=== PATIENT | female | born 1960 | race Hispanic/Latino ===

== ENCOUNTER 2017-09-23 14:32 | Emergency (ER) | payer OTHER ==
[2017-09-23 15:02] LABS: BASOPHILS % (AUTO) 0.4 % (0.0-5.0); EOSINOPHILS % (AUTO) 0.1 % (0.0-8.0); HEMATOCRIT 42.6 % (36-48); LYMPHOCYTES % (AUTO) 11.4 % (21.0-51.0); MEAN CORPUSCULAR HEMOGLOBIN 27.9 pg (27.0-33.0); MEAN CORPUSCULAR HGB CONC 33.7 g/dL (32.0-36.0); MEAN CORPUSCULAR VOLUME 82.7 fL (79-99); MONOCYTES % (AUTO) 2.3 % (3.0-13.0); NEUTROPHILS % (AUTO) 85.8 % (40.0-77.0); PLATELET COUNT (AUTO) 325 K/uL (130-400); RED BLOOD CELL COUNT(AUTO) 5.15 MIL/uL (4.00-5.50); RED CELL DISTRIBUTION WIDTH 15.9 % (11.0-15.5); WHITE BLOOD COUNT (AUTO) 9.6 K/uL (4.8-10.8)
[2017-09-23 15:17] LABS: ALBUMIN 3.5 g/dL (3.5-5.0); BILIRUBIN,DIRECT 0.2 mg/dL (0.0-0.3); BILIRUBIN,TOTAL 0.9 mg/dL (0.2-1.0); CREATININE 1.7 mg/dL (0.5-1.5); POTASSIUM 3.5 mmol/L (3.5-5.1); TOTAL PROTEIN, SERUM 8.2 g/dL (6.0-8.3)
[2017-09-23] MEDS ORDERED: SODIUM CHLORIDE 0.9% 1000ML 2,000 ML IV ONE (15:46)
[2017-09-23] MEDS ORDERED: ONDANSETRON HCL 4 MG/2 ML VIAL ONE (15:46)
[2017-09-23] MEDS ORDERED: INSULIN HUMULIN R 100 UNIT/ML 3ML ONE ×2 (15:47→18:38)
[2017-09-23 15:57] LABS: ABG BASE EXCESS 12.2 mmol/L (-2.0-3.0); ABG HCO3 36.3 mmol/L (21.0-28.0); ABG OXYGEN SATURATION 95.9 % (95.0-99.0); ABG PCO2 44 mmHg (32-45)
[2017-09-23] MEDS ORDERED: POTASSIUM CHLORIDE 20 MEQ ERTAB PO ONE (18:36)
== END 2017-09-23 19:39 | disposition home or self-care (01) ==
LOC: EDH 14:32
DX: K52.9 Noninfective gastroenteritis and colitis, unspecified (principal); E11.65 Type 2 diabetes mellitus with hyperglycemia; I10 Essential (primary) hypertension; E78.5 Hyperlipidemia, unspecified; F32.9 Major depressive disorder, single episode, unspecified; Z90.710 Acquired absence of both cervix and uterus; Z98.890 Other specified postprocedural states; Z90.49 Acquired absence of other specified parts of digestive tract
CPT/HCPCS: 36415; 36600; 74176; 80048; 80076; 82550; 82803; 82948 ×3; 83690; 84484; 85025; 93005; 96361; 96374 ×2; 96375; 99285; J1815 ×2; J2405; J7030

== ENCOUNTER 2023-07-30 04:04 | Emergency (ER) | payer BC, OTHER ==
[~2023-07-30] VITALS: Ht 152.4 cm; Wt 92.1 kg
[~2023-07-30 04:04] MED LIST: CITA10TA89 PO; GABA-529 PO; INSLAN SQ; LISI20TA24 PO; OMEP40CA21 PO; ONDA-104 PO; POTA-200 PO; ROSU5TAB12 PO; SEMA0.258 SQ
[2023-07-30 04:42] LABS: BASOPHILS # (AUTO) 0.05 K/uL (0.00-0.20); BASOPHILS % (AUTO) 0.3 % (0.0-5.0); EOSINOPHILS # (AUTO) 0.01 K/uL (0.00-0.70); EOSINOPHILS % (AUTO) 0.1 % (0.0-8.0); HEMATOCRIT 31.9 % (36-48); LYMPHOCYTES # (AUTO) 1.3 K/uL (1.0-4.8); LYMPHOCYTES % (AUTO) 6.4 % (21.0-51.0); MEAN CORPUSCULAR HEMOGLOBIN 27.7 pg (27.0-33.0); MEAN CORPUSCULAR HGB CONC 33.2 g/dL (32.0-36.0); MEAN CORPUSCULAR VOLUME 83.5 fL (79-99); MONOCYTES # (AUTO) 0.8 K/uL (0.1-1.0); MONOCYTES % (AUTO) 4.2 % (3.0-13.0); NEUTROPHILS # (AUTO) 17.3 K/uL (1.8-7.7); NEUTROPHILS % (AUTO) 88.5 % (40.0-77.0); PLATELET COUNT (AUTO) 258 K/uL (130-400); RED BLOOD CELL COUNT(AUTO) 3.82 MIL/uL (4.00-5.50); WHITE BLOOD COUNT (AUTO) 19.5 K/uL (4.8-10.8)
[2023-07-30 05:08] LABS: MAGNESIUM 1.4 mg/dL (1.80-2.40); THYROID STIMULATING HORMONE 0.75 uIU/mL (0.36-3.74)
[2023-07-30 05:25] LABS: CREATININE 1.1 mg/dL (0.5-1.0); POTASSIUM 3.4 mmol/L (3.5-5.1)
[2023-07-30 05:30] LABS: ALBUMIN 2.8 g/dL (3.5-5.0); BILIRUBIN,TOTAL 0.6 mg/dL (0.2-1.0); TOTAL PROTEIN, SERUM 7.9 g/dL (6.0-8.3)
[2023-07-30 06:00] LABS: APPEARANCE,URINE CLOUDY (CLEAR); BILIRUBIN,URINE NEGATIVE (NEGATIVE); COLOR,URINE YELLOW (YELLOW); GLUCOSE, URINE (UA) >=1000 mg/dL (NEGATIVE); KETONES,URINE NEGATIVE (NEGATIVE); LEUKOCYTE ESTERASE ,URINE 500 Leu/uL (NEGATIVE); NITRATE,URINE NEGATIVE (NEGATIVE); OCCULT BLOOD,URINE SMALL (NEGATIVE); PROTEIN,URINE 50 mg/dL (NEGATIVE); UROBILINOGEN,URINE 0.2 mg/dL (0.2-1.0)
[2023-07-30 06:01] LABS: ADD UA MICROSCOPIC YES
[2023-07-30 06:07] LABS: BACTERIA,URINE MANY /HPF (None Seen); MUCUS,URINE RARE LPF (None Seen); RBC,URINE 51-100 /HPF (0-1); SQUAMOUS EPITHELIAL CELL,UR MANY /HPF (0-2); UNCLASSIFIED CRYSTAL 14 /HPF (None Seen); WBC CLUMP FEW /HPF (0-1); WBC,URINE TNTC /HPF (0-1); YEAST,URINE BUDDING MOD /HPF (None Seen)
[2023-07-30] MEDS: CEFTRIAXONE 2GM VIAL IVPB ONE (06:10)
[2023-07-30] MEDS ORDERED: CEPH500T PO (06:16)
[2023-07-30 06:19] VITALS: BP 152/69; PULSE 96; RESP 17; O2SAT 97
[2023-07-30 07:07] LABS: B-TYPE NATRIURETIC PEPTIDE 481 pg/mL (0-100)
== END 2023-07-30 07:01 | disposition home or self-care (01) ==
LOC: EDH 04:04
DX: N39.0 Urinary tract infection, site not specified (principal); I10 Essential (primary) hypertension; E11.9 Type 2 diabetes mellitus without complications; E78.00 Pure hypercholesterolemia, unspecified; F32.A Depression, unspecified; Z79.899 Other long term (current) drug therapy; Z87.19 Personal history of other diseases of the digestive system; Z90.49 Acquired absence of other specified parts of digestive tract; Z90.710 Acquired absence of both cervix and uterus; Z90.89 Acquired absence of other organs; Z98.890 Other specified postprocedural states
CPT/HCPCS: 99285; 96374; 71045; 84443; 82550; 83735; 84484 ×2; 80053; 83880; 85025; 87077 ×2; 87088; 87186 ×2; 82948; 81001; 36415; 93005; J0696

== ENCOUNTER 2023-10-22 00:16 | Inpatient (IN) | payer BC, MEDICARE ==
[~2023-10-22] VITALS: Ht 165.1 cm; Wt 95.7 kg
[~2023-10-22 00:16] MED LIST changes: -POTA-200 PO; -ROSU5TAB12 PO; +ROSU5TAB43 PO
[2023-10-22 00:50] LABS: ADD UA MICROSCOPIC YES; APPEARANCE,URINE CLOUDY (CLEAR); BILIRUBIN,URINE NEGATIVE (NEGATIVE); COLOR,URINE LIGHT-YELLOW (YELLOW); GLUCOSE, URINE (UA) NEGATIVE (NEGATIVE); KETONES,URINE NEGATIVE (NEGATIVE); LEUKOCYTE ESTERASE ,URINE 500 Leu/uL (NEGATIVE); NITRATE,URINE NEGATIVE (NEGATIVE); OCCULT BLOOD,URINE SMALL (NEGATIVE); PH,URINE 5.5 (5.0-8.0); PROTEIN,URINE 10 mg/dL (NEGATIVE); UROBILINOGEN,URINE 0.2 mg/dL (0.2-1.0)
[2023-10-22 00:53] LABS: BACTERIA,URINE MOD /HPF (None Seen); MUCUS,URINE RARE LPF (None Seen); SQUAMOUS EPITHELIAL CELL,UR FEW /HPF (0-2); WBC CLUMP MANY /HPF (0-1); WBC,URINE TNTC /HPF (0-1)
[2023-10-22 00:54] LABS: BASOPHILS # (AUTO) 0.04 K/uL (0.00-0.20); BASOPHILS % (AUTO) 0.3 % (0.0-5.0); EOSINOPHILS # (AUTO) 0.13 K/uL (0.00-0.70); HEMATOCRIT 24.8 % (36-48); IMMATURE GRANULOCYTE ABSOLUTE 0.06 K/uL (0-1); LYMPHOCYTES # (AUTO) 1.4 K/uL (1.0-4.8); LYMPHOCYTES % (AUTO) 10.7 % (21.0-51.0); MEAN CORPUSCULAR HEMOGLOBIN 26.2 pg (27.0-33.0); MEAN CORPUSCULAR HGB CONC 31.9 g/dL (32.0-36.0); MEAN CORPUSCULAR VOLUME 82.4 fL (79-99); MONOCYTES # (AUTO) 0.5 K/uL (0.1-1.0); MONOCYTES % (AUTO) 3.7 % (3.0-13.0); NEUTROPHILS # (AUTO) 10.7 K/uL (1.8-7.7); NEUTROPHILS % (AUTO) 83.8 % (40.0-77.0); PLATELET COUNT (AUTO) 307 K/uL (130-400); RED BLOOD CELL COUNT(AUTO) 3.01 MIL/uL (4.00-5.50); RED CELL DISTRIBUTION WIDTH 14.7 % (11.0-15.5); WHITE BLOOD COUNT (AUTO) 12.8 K/uL (4.8-10.8)
[2023-10-22 01:02] LABS: CREATININE 1.2 mg/dL (0.5-1.0); POTASSIUM 3.6 mmol/L (3.5-5.1)
[2023-10-22 01:07] LABS: ALBUMIN 1.8 g/dL (3.5-5.0); BILIRUBIN,TOTAL 0.4 mg/dL (0.2-1.0); MAGNESIUM 1.1 mg/dL (1.80-2.40); TOTAL PROTEIN, SERUM 6.2 g/dL (6.0-8.3)
[2023-10-22] MEDS ORDERED: IOHEXOL 350 MG/ML 100ML INFUS..BTL IV ONE (01:17)
[2023-10-22] MEDS: DEXTROSE 50%-WATER 50 ML DISP.SYRIN IV ONE (01:48)
[2023-10-22] MEDS: MAGNESIUM 2GM PREMIX 50ML 50 ML IV SCH (01:48)
[2023-10-22] MEDS: CEFTRIAXONE 1G VIAL IVPB ONE (01:49)
[2023-10-22] MEDS: 0.9% NACL 500ML IV.SOLN 500 ML IV ONE (03:39)
[2023-10-22] MEDS ORDERED: ONDANSETRON ODT 4MG TAB SL PRN (06:00)
[2023-10-22] MEDS ORDERED: ACETAMINOPHEN 325 MG TAB PO PRN (06:00)
[2023-10-22] MEDS: ZOSYN 3.375GM +NS 50ML IV SCH (06:22)
[2023-10-22] MEDS: INSULIN HUMULIN R 100 UNIT/ML 3ML SQ SCH (06:32)
[2023-10-22 06:40] VITALS: BP 123/58; PULSE 73; RESP 19; O2SAT 98
[2023-10-22 07:23] LABS: BASOPHILS # (AUTO) 0.04 K/uL (0.00-0.20); BASOPHILS % (AUTO) 0.3 % (0.0-5.0); EOSINOPHILS # (AUTO) 0.08 K/uL (0.00-0.70); EOSINOPHILS % (AUTO) 0.6 % (0.0-8.0); HEMATOCRIT 23.2 % (36-48); IMMATURE GRANULOCYTE ABSOLUTE 0.06 K/uL (0-1); LYMPHOCYTES # (AUTO) 1.1 K/uL (1.0-4.8); LYMPHOCYTES % (AUTO) 8.5 % (21.0-51.0); MEAN CORPUSCULAR HEMOGLOBIN 26.4 pg (27.0-33.0); MEAN CORPUSCULAR HGB CONC 31.9 g/dL (32.0-36.0); MEAN CORPUSCULAR VOLUME 82.9 fL (79-99); MONOCYTES # (AUTO) 0.6 K/uL (0.1-1.0); MONOCYTES % (AUTO) 4.9 % (3.0-13.0); NEUTROPHILS # (AUTO) 10.5 K/uL (1.8-7.7); NEUTROPHILS % (AUTO) 85.2 % (40.0-77.0); PLATELET COUNT (AUTO) 343 K/uL (130-400); RED CELL DISTRIBUTION WIDTH 14.6 % (11.0-15.5); WHITE BLOOD COUNT (AUTO) 12.4 K/uL (4.8-10.8)
[2023-10-22 07:32] LABS: HEMOGLOBIN A1C 10.9 % (4.0-6.0)
[2023-10-22 07:35] LABS: ALBUMIN 1.8 g/dL (3.5-5.0); CREATININE 1.4 mg/dL (0.5-1.0); POTASSIUM 3.1 mmol/L (3.5-5.1)
[2023-10-22 07:40] LABS: BILIRUBIN,TOTAL 0.3 mg/dL (0.2-1.0); MAGNESIUM 1.7 mg/dL (1.80-2.40); TOTAL PROTEIN, SERUM 6.4 g/dL (6.0-8.3)
[2023-10-22 08:00] VITALS: BP 132/60; PULSE 70; RESP 16; O2SAT 99
[2023-10-22] MEDS: ENOXAPARIN SODIUM 30 MG/0.3 ML SQ SCH (09:00)
[2023-10-22 11:47] VITALS: BP 129/51; PULSE 68; RESP 18
[2023-10-22] MEDS: KCL 20 MEQ ERTAB PO PRN (13:26)
[2023-10-22 16:00] VITALS: BP 155/71; PULSE 72; RESP 14
[2023-10-22 20:00] VITALS: BP 151/65; PULSE 76; RESP 18
[2023-10-22 20:05] VITALS: O2SAT 99
[2023-10-23] VITALS (7 sets, daily range): BP systolic 142–165; BP diastolic 58–78; PULSE 68–79; RESP 17–18; O2SAT 97–98
[2023-10-23 05:31] LABS: MEAN CORPUSCULAR HEMOGLOBIN 26.6 pg (27.0-33.0); MEAN CORPUSCULAR HGB CONC 30.9 g/dL (32.0-36.0); MEAN CORPUSCULAR VOLUME 86.1 fL (79-99); PLATELET COUNT (AUTO) 340 K/uL (130-400); RED BLOOD CELL COUNT(AUTO) 2.67 MIL/uL (4.00-5.50); RED CELL DISTRIBUTION WIDTH 14.8 % (11.0-15.5); WHITE BLOOD COUNT (AUTO) 11.1 K/uL (4.8-10.8)
[2023-10-23 06:04] LABS: CREATININE 1.4 mg/dL (0.5-1.0); MAGNESIUM 2.2 mg/dL (1.80-2.40); POTASSIUM 4.1 mmol/L (3.5-5.1)
[2023-10-24] VITALS (8 sets, daily range): BP systolic 149–174; BP diastolic 51–78; PULSE 70–80; RESP 17–18; O2SAT 96–97
[2023-10-24 05:25] LABS: HEMATOCRIT 27.5 % (36-48); MEAN CORPUSCULAR HEMOGLOBIN 26.4 pg (27.0-33.0); MEAN CORPUSCULAR HGB CONC 31.6 g/dL (32.0-36.0); MEAN CORPUSCULAR VOLUME 83.3 fL (79-99); RED BLOOD CELL COUNT(AUTO) 3.3 MIL/uL (4.00-5.50); RED CELL DISTRIBUTION WIDTH 14.9 % (11.0-15.5); WHITE BLOOD COUNT (AUTO) 9.3 K/uL (4.8-10.8)
[2023-10-24 05:35] LABS: CREATININE 1.5 mg/dL (0.5-1.0)
[2023-10-24] MEDS: LISINOPRIL 20 MG TABLET PO ONE (11:54)
[2023-10-24] MEDS: AMLODIPINE 5 MG TAB PO ONE (11:54)
[2023-10-24] MEDS: FUROSEMIDE 20 MG TABLET PO ONE (11:57)
[2023-10-24] MEDS ORDERED: LISI20TA24 PO (13:02)
[2023-10-24] MEDS ORDERED: AMOX1TAB16 PO (13:02)
[2023-10-24] MEDS ORDERED: OMEP40CA21 PO (13:02)
[2023-10-24] MEDS ORDERED: ROSU5TAB43 PO (13:02)
[2023-10-24] MEDS ORDERED: MELO-108 PO (13:02)
[2023-10-24] MEDS ORDERED: AMLO-257 PO (13:02)
[2023-10-24] MEDS ORDERED: SERT-439 PO (13:02)
[2023-10-24] MEDS ORDERED: GABA-534 PO (13:02)
[2023-10-24] MEDS ORDERED: CITA-107 PO (13:02)
[2023-10-25] VITALS (7 sets, daily range): BP systolic 150–164; BP diastolic 72–79; PULSE 66–74; RESP 17–18; O2SAT 96
[2023-10-25 03:55] LABS: HEMATOCRIT 28.5 % (36-48); MEAN CORPUSCULAR HEMOGLOBIN 26.5 pg (27.0-33.0); MEAN CORPUSCULAR HGB CONC 31.9 g/dL (32.0-36.0); MEAN CORPUSCULAR VOLUME 82.8 fL (79-99); RED BLOOD CELL COUNT(AUTO) 3.44 MIL/uL (4.00-5.50); RED CELL DISTRIBUTION WIDTH 15.1 % (11.0-15.5); WHITE BLOOD COUNT (AUTO) 10.3 K/uL (4.8-10.8)
[2023-10-25 04:21] LABS: CREATININE 1.1 mg/dL (0.5-1.0); MAGNESIUM 1.8 mg/dL (1.80-2.40); POTASSIUM 4.3 mmol/L (3.5-5.1)
[2023-10-25] MEDS: MELOXICAM 7.5 MG TABLET PO SCH (09:00)
[2023-10-25] MEDS: PANTOPRAZOLE 40 MG TAB DR PO SCH (09:00)
[2023-10-25] MEDS: CITALOPRAM 20 MG TABLET PO SCH (09:00)
[2023-10-25] MEDS: GABAPENTIN 300 MG CAPSULE PO SCH (09:00)
[2023-10-25] MEDS: SERTRALINE HCL 50 MG TABLET PO SCH (09:00)
[2023-10-25] MEDS ORDERED: FUROSEMIDE 20 MG TABLET PO SCH (09:00)
[2023-10-25] MEDS: AMLODIPINE 5 MG TAB PO SCH (09:00)
[2023-10-25] MEDS: LISINOPRIL 20 MG TABLET PO SCH (09:00)
[2023-10-25] MEDS: REGADENOSON 0.4 MG/5 ML PF SYG IVP SCH (14:19)
[2023-10-26] VITALS (7 sets, daily range): BP systolic 128–162; BP diastolic 64–78; PULSE 58–80; RESP 16–20; O2SAT 98–99
[2023-10-26 05:22] LABS: HEMATOCRIT 29.2 % (36-48); MEAN CORPUSCULAR HEMOGLOBIN 26.4 pg (27.0-33.0); MEAN CORPUSCULAR HGB CONC 30.1 g/dL (32.0-36.0); MEAN CORPUSCULAR VOLUME 87.7 fL (79-99); RED BLOOD CELL COUNT(AUTO) 3.33 MIL/uL (4.00-5.50); RED CELL DISTRIBUTION WIDTH 15.2 % (11.0-15.5); WHITE BLOOD COUNT (AUTO) 7.3 K/uL (4.8-10.8)
[2023-10-26 05:37] LABS: CREATININE 1.2 mg/dL (0.5-1.0); MAGNESIUM 2.1 mg/dL (1.80-2.40); POTASSIUM 3.5 mmol/L (3.5-5.1)
[2023-10-27] VITALS (7 sets, daily range): BP systolic 141–153; BP diastolic 60–71; PULSE 56–66; RESP 18; O2SAT 99–100
[2023-10-28] VITALS (9 sets, daily range): BP systolic 102–146; BP diastolic 47–88; PULSE 61–91; RESP 17–19; O2SAT 96–98
[2023-10-28 05:22] LABS: HEMATOCRIT 29.8 % (36-48); MEAN CORPUSCULAR HEMOGLOBIN 26.7 pg (27.0-33.0); MEAN CORPUSCULAR HGB CONC 31.2 g/dL (32.0-36.0); MEAN CORPUSCULAR VOLUME 85.6 fL (79-99); RED BLOOD CELL COUNT(AUTO) 3.48 MIL/uL (4.00-5.50); RED CELL DISTRIBUTION WIDTH 15.1 % (11.0-15.5); WHITE BLOOD COUNT (AUTO) 5.9 K/uL (4.8-10.8)
[2023-10-28 05:34] LABS: CREATININE 1.4 mg/dL (0.5-1.0); MAGNESIUM 1.7 mg/dL (1.80-2.40); POTASSIUM 3.6 mmol/L (3.5-5.1)
[2023-10-28 05:38] LABS: INR 1.01 (0.85-1.15); PROTHROMBIN TIME 10.9 SEC (9.6-11.6)
[2023-10-28 05:39] LABS: PARTIAL THROMBOPLASTIN TIME 25.6 SEC (26.3-35.5)
[2023-10-28] MEDS: POTASSIUM CHLORIDE 10% ELIXIR 20 MEQ/15 ML UDCUP PO PRN (15:08)
[2023-10-28] MEDS: ZOSYN 3.375GM +NS 50ML IV SCH (17:53)
[2023-10-29] VITALS (8 sets, daily range): BP systolic 131–163; BP diastolic 55–77; PULSE 60–71; RESP 16–18; O2SAT 98–99
[2023-10-29] MEDS: HYDRALAZINE 20MG/ML VIAL IV PRN (18:37)
[2023-10-30] VITALS (7 sets, daily range): BP systolic 139–154; BP diastolic 62–78; PULSE 65–70; RESP 16–17; O2SAT 96–98
[2023-10-30 05:26] LABS: HEMATOCRIT 29.7 % (36-48); MEAN CORPUSCULAR HEMOGLOBIN 27.1 pg (27.0-33.0); MEAN CORPUSCULAR VOLUME 87.4 fL (79-99); RED BLOOD CELL COUNT(AUTO) 3.4 MIL/uL (4.00-5.50); RED CELL DISTRIBUTION WIDTH 15.6 % (11.0-15.5); WHITE BLOOD COUNT (AUTO) 6.9 K/uL (4.8-10.8)
[2023-10-30 05:33] LABS: CREATININE 1.8 mg/dL (0.5-1.0); MAGNESIUM 1.8 mg/dL (1.80-2.40)
[2023-10-31] VITALS (8 sets, daily range): BP systolic 144–164; BP diastolic 65–84; PULSE 65–74; RESP 17–19; O2SAT 95–98
[2023-10-31 07:13] LABS: HEMATOCRIT 30.2 % (36-48); MEAN CORPUSCULAR HEMOGLOBIN 26.6 pg (27.0-33.0); MEAN CORPUSCULAR HGB CONC 31.5 g/dL (32.0-36.0); MEAN CORPUSCULAR VOLUME 84.6 fL (79-99); RED BLOOD CELL COUNT(AUTO) 3.57 MIL/uL (4.00-5.50); RED CELL DISTRIBUTION WIDTH 15.9 % (11.0-15.5); WHITE BLOOD COUNT (AUTO) 6.4 K/uL (4.8-10.8)
[2023-10-31 07:25] LABS: CREATININE 1.8 mg/dL (0.5-1.0); POTASSIUM 4.2 mmol/L (3.5-5.1)
[2023-10-31] MEDS: INSULIN HUMULIN R 100 UNIT/ML 3ML SQ SCH (12:28)
[2023-10-31] MEDS: LACTATED RINGERS 1000ML 1,000 ML IV SCH (14:56)
[2023-10-31] MEDS: PEG 3350/NA SULF,BICARB,CL/KCL 4000 ML SOLN PO ONE (14:56)
[2023-11-01] VITALS (8 sets, daily range): BP systolic 128–170; BP diastolic 50–81; PULSE 59–74; RESP 16–18; O2SAT 98–99
[2023-11-01 05:35] LABS: BASOPHILS # (AUTO) 0.05 K/uL (0.00-0.20); BASOPHILS % (AUTO) 0.6 % (0.0-5.0); EOSINOPHILS # (AUTO) 0.16 K/uL (0.00-0.70); EOSINOPHILS % (AUTO) 1.9 % (0.0-8.0); HEMATOCRIT 31.5 % (36-48); IMMATURE GRANULOCYTE ABSOLUTE 0.02 K/uL (0-1); LYMPHOCYTES # (AUTO) 1.3 K/uL (1.0-4.8); LYMPHOCYTES % (AUTO) 15.8 % (21.0-51.0); MEAN CORPUSCULAR HGB CONC 31.4 g/dL (32.0-36.0); MEAN CORPUSCULAR VOLUME 85.8 fL (79-99); MONOCYTES # (AUTO) 0.4 K/uL (0.1-1.0); MONOCYTES % (AUTO) 4.2 % (3.0-13.0); NEUTROPHILS # (AUTO) 6.4 K/uL (1.8-7.7); NEUTROPHILS % (AUTO) 77.3 % (40.0-77.0); PLATELET COUNT (AUTO) 282 K/uL (130-400); RED BLOOD CELL COUNT(AUTO) 3.67 MIL/uL (4.00-5.50); RED CELL DISTRIBUTION WIDTH 15.7 % (11.0-15.5); WHITE BLOOD COUNT (AUTO) 8.3 K/uL (4.8-10.8)
[2023-11-01 05:55] LABS: ALBUMIN 2.6 g/dL (3.5-5.0); BILIRUBIN,TOTAL 0.4 mg/dL (0.2-1.0); CREATININE 1.3 mg/dL (0.5-1.0); POTASSIUM 3.3 mmol/L (3.5-5.1); TOTAL PROTEIN, SERUM 7.1 g/dL (6.0-8.3)
[2023-11-01 06:05] LABS: INR 0.99 (0.85-1.15); PROTHROMBIN TIME 10.7 SEC (9.6-11.6)
[2023-11-01 06:06] LABS: PARTIAL THROMBOPLASTIN TIME 24.6 SEC (26.3-35.5)
[2023-11-01] MEDS: POTASSIUM CHLORIDE 10MEQ SR TAB PO PRN (13:04)
[2023-11-02] VITALS (8 sets, daily range): BP systolic 132–170; BP diastolic 49–71; PULSE 65–84; RESP 16–20; O2SAT 95–98
[2023-11-02] MEDS ORDERED: 0.9%NACL 50ML IV SCH (02:00)
[2023-11-02] MEDS: ZOSYN 3.375GM +NS 50ML IVPB SCH (02:00)
[2023-11-03] VITALS (7 sets, daily range): BP systolic 114–153; BP diastolic 44–67; PULSE 62–76; RESP 18–20; O2SAT 96–97
[2023-11-03 05:59] LABS: HEMATOCRIT 29.5 % (36-48); MEAN CORPUSCULAR HGB CONC 31.5 g/dL (32.0-36.0); MEAN CORPUSCULAR VOLUME 85.8 fL (79-99); RED BLOOD CELL COUNT(AUTO) 3.44 MIL/uL (4.00-5.50); RED CELL DISTRIBUTION WIDTH 16.4 % (11.0-15.5); WHITE BLOOD COUNT (AUTO) 5.8 K/uL (4.8-10.8)
[2023-11-03 06:09] LABS: CREATININE 1.3 mg/dL (0.5-1.0); MAGNESIUM 1.5 mg/dL (1.80-2.40); POTASSIUM 3.5 mmol/L (3.5-5.1)
[2023-11-03] MEDS: MAGNESIUM CITRATE 296 ML SOLUTION PO ONE (17:28)
[2023-11-04] VITALS (25 sets, daily range): BP systolic 97–175; BP diastolic 41–71; PULSE 57–80; RESP 12–20; O2SAT 95–96
[2023-11-04 05:53] LABS: HEMATOCRIT 28.9 % (36-48); MEAN CORPUSCULAR HEMOGLOBIN 27.3 pg (27.0-33.0); MEAN CORPUSCULAR HGB CONC 31.5 g/dL (32.0-36.0); MEAN CORPUSCULAR VOLUME 86.8 fL (79-99); RED BLOOD CELL COUNT(AUTO) 3.33 MIL/uL (4.00-5.50); RED CELL DISTRIBUTION WIDTH 16.1 % (11.0-15.5); WHITE BLOOD COUNT (AUTO) 5.7 K/uL (4.8-10.8)
[2023-11-04 06:07] LABS: CREATININE 1.3 mg/dL (0.5-1.0); MAGNESIUM 2.1 mg/dL (1.80-2.40); POTASSIUM 3.1 mmol/L (3.5-5.1)
[2023-11-04 06:09] LABS: INR 0.99 (0.85-1.15); PROTHROMBIN TIME 10.7 SEC (9.6-11.6)
[2023-11-04 06:11] LABS: PARTIAL THROMBOPLASTIN TIME 24.8 SEC (26.3-35.5)
[2023-11-04] MEDS: POTASSIUM CHLORIDE 10MEQ/100ML 100 ML IV PRN (06:12)
[2023-11-04] MEDS ORDERED: SUCCINYLCHOLINE CHLORIDE 20 MG/ML 10 ML VIAL ONE (09:27)
[2023-11-04] MEDS ORDERED: LIDOCAINE PF 100MG/5ML (2%) SYRINGE 5ML ONE (09:27)
[2023-11-04] MEDS ORDERED: GLYCOPYRROLATE 0.2 MG/ML 5 ML VIAL ONE (09:28)
[2023-11-04] MEDS ORDERED: ROCURONIUM BROMIDE 10MG/1ML 5ML VL ONE ×2 (09:28→15:59)
[2023-11-04] MEDS ORDERED: NEOSTIGMINE METHYLSULFATE 1MG/ML IV ONE (09:28)
[2023-11-04] MEDS ORDERED: MIDAZOLAM HCL 1 MG/ML 2ML VIAL ONE (09:28)
[2023-11-04] MEDS ORDERED: PROPOFOL 10 MG/ML 20ML VIAL IV ONE (09:28)
[2023-11-04] MEDS ORDERED: ONDANSETRON 4MG INJ ONE (09:28)
[2023-11-04] MEDS ORDERED: DEXAMETHASONE SOD PHOSPHATE 10MG/ML 1ML VIAL ONE (09:28)
[2023-11-04] MEDS ORDERED: FENTANYL CITRATE PF 50 MCG/1 ML 2ML VIAL ONE ×2 (09:29→15:59)
[2023-11-04] MEDS ORDERED: PHENYLEPHRINE HCL 10 MG/ML 1ML VIAL IV ONE (09:33)
[2023-11-04] MEDS ORDERED: ALBUMIN (HUMAN) 5% 500 ML IV ONE (09:44)
[2023-11-04] MEDS ORDERED: ROPIVACAINE 0.5% 5MG/ML 30ML ONE (09:46)
[2023-11-04] MEDS ORDERED: LIDOCAINE HCL 1% 20 ML VIAL ONE (11:50)
[2023-11-04] MEDS ORDERED: BUPIVACAINE/PF 0.5% 30ML VIAL ONE (11:50)
[2023-11-04] MEDS ORDERED: CEFAZOLIN SODIUM 1 GM VIAL ONE (11:50)
[2023-11-04] MEDS: CEFAZOLIN SODIUM 1 GM VIAL IRRIG ONE (16:22)
[2023-11-04] MEDS ORDERED: FENTANYL CITRATE PF 50 MCG/1 ML 5ML AMP IV ONE (16:31)
[2023-11-04] MEDS: SUGAMMADEX SODIUM 200 MG/2 ML VIAL IV ONE (17:06)
[2023-11-04] MEDS: 0.9%NACL 1000ML 1,000 ML IV SCH (20:00)
[2023-11-04] MEDS ORDERED: ONDANSETRON 4MG INJ IVP PRN (20:00)
[2023-11-04] MEDS: KETOROLAC 15MG/ML VIAL (15MG/ML) IV SCH (20:33)
[2023-11-05] VITALS (8 sets, daily range): BP systolic 142–162; BP diastolic 50–60; PULSE 69–80; RESP 17–20; O2SAT 94–95
[2023-11-05] MEDS: INSULIN HUMULIN R 100 UNIT/ML 3ML SQ SCH (00:54)
[2023-11-05 04:54] LABS: HEMATOCRIT 28.2 % (36-48); MEAN CORPUSCULAR HEMOGLOBIN 26.5 pg (27.0-33.0); MEAN CORPUSCULAR HGB CONC 30.9 g/dL (32.0-36.0); PLATELET COUNT (AUTO) 236 K/uL (130-400); RED BLOOD CELL COUNT(AUTO) 3.28 MIL/uL (4.00-5.50); RED CELL DISTRIBUTION WIDTH 16.3 % (11.0-15.5); WHITE BLOOD COUNT (AUTO) 15.3 K/uL (4.8-10.8)
[2023-11-05 05:23] LABS: ALBUMIN 2.7 g/dL (3.5-5.0); BILIRUBIN,TOTAL 0.5 mg/dL (0.2-1.0); CREATININE 1.4 mg/dL (0.5-1.0); MAGNESIUM 1.9 mg/dL (1.80-2.40); TOTAL PROTEIN, SERUM 6.6 g/dL (6.0-8.3)
[2023-11-05] MEDS: PANTOPRAZOLE 40 MG/VIAL IVP SCH (11:46)
[2023-11-06] VITALS (7 sets, daily range): BP systolic 155–183; BP diastolic 45–98; PULSE 73–80; RESP 18–19; O2SAT 96–98
[2023-11-06 05:15] LABS: HEMATOCRIT 28.1 % (36-48); MEAN CORPUSCULAR HEMOGLOBIN 26.7 pg (27.0-33.0); MEAN CORPUSCULAR HGB CONC 29.5 g/dL (32.0-36.0); MEAN CORPUSCULAR VOLUME 90.4 fL (79-99); RED BLOOD CELL COUNT(AUTO) 3.11 MIL/uL (4.00-5.50); RED CELL DISTRIBUTION WIDTH 17.1 % (11.0-15.5); WHITE BLOOD COUNT (AUTO) 11.7 K/uL (4.8-10.8)
[2023-11-06 05:39] LABS: CREATININE 1.2 mg/dL (0.5-1.0); MAGNESIUM 2.3 mg/dL (1.80-2.40); POTASSIUM 3.2 mmol/L (3.5-5.1)
[2023-11-06] MEDS: POTASSIUM CHLORIDE 20MEQ/100ML 100 ML IV PRN (18:30)
[2023-11-06] MEDS: ZOSYN 3.375GM +NS 50ML IVPB SCH (22:09)
[2023-11-07] VITALS (7 sets, daily range): BP systolic 145–209; BP diastolic 63–88; PULSE 70–86; RESP 18–19; O2SAT 98
[2023-11-07] MEDS: HYDROMORPHONE 1 MG INJ IVP PRN (01:18)
[2023-11-07 06:03] LABS: HEMATOCRIT 25.9 % (36-48); MEAN CORPUSCULAR HGB CONC 31.3 g/dL (32.0-36.0); MEAN CORPUSCULAR VOLUME 86.3 fL (79-99); RED CELL DISTRIBUTION WIDTH 16.7 % (11.0-15.5); WHITE BLOOD COUNT (AUTO) 11.3 K/uL (4.8-10.8)
[2023-11-07 06:21] LABS: MAGNESIUM 1.7 mg/dL (1.80-2.40)
[2023-11-07 06:24] LABS: POTASSIUM 2.9 mmol/L (3.5-5.1)
[2023-11-07 11:23] LABS: CHOLESTEROL 173 mg/dL (<200); HDL CHOLESTEROL 63 mg/dL (35-85); LDL DIRECT 95 mg/dL (0-99); TRIGLYCERIDES 133 mg/dL (30-200)
[2023-11-08] VITALS: BP 123/73; PULSE 89; RESP 18
[2023-11-08 04:04] VITALS: BP 132/85; PULSE 89; RESP 19
[2023-11-08 05:32] LABS: HEMATOCRIT 30.4 % (36-48); MEAN CORPUSCULAR HEMOGLOBIN 27.2 pg (27.0-33.0); MEAN CORPUSCULAR HGB CONC 30.6 g/dL (32.0-36.0); MEAN CORPUSCULAR VOLUME 88.9 fL (79-99); RED BLOOD CELL COUNT(AUTO) 3.42 MIL/uL (4.00-5.50); RED CELL DISTRIBUTION WIDTH 17.2 % (11.0-15.5); WHITE BLOOD COUNT (AUTO) 11.6 K/uL (4.8-10.8)
[2023-11-08 05:51] LABS: MAGNESIUM 1.6 mg/dL (1.80-2.40); POTASSIUM 3.1 mmol/L (3.5-5.1)
[2023-11-08 08:00] VITALS: BP 181/73; PULSE 84; RESP 18; O2SAT 98
[2023-11-08 12:00] VITALS: BP 177/78; PULSE 84; RESP 18
[2023-11-08 16:00] VITALS: BP 175/70; PULSE 80; RESP 18
[2023-11-08 20:00] VITALS: BP 140/88; PULSE 83; RESP 20; O2SAT 97
[2023-11-08] MEDS ORDERED: POTASSIUM CHLORIDE 10MEQ/100ML 100 ML IV PRN (23:00)
[2023-11-09] VITALS (58 sets, daily range): BP systolic 132–198; BP diastolic 51–101; PULSE 68–220; RESP 5–30; O2SAT 97–100
[2023-11-09 01:09] LABS: HEMATOCRIT 28.3 % (36-48); MEAN CORPUSCULAR HEMOGLOBIN 27.5 pg (27.0-33.0); MEAN CORPUSCULAR HGB CONC 32.5 g/dL (32.0-36.0); MEAN CORPUSCULAR VOLUME 84.7 fL (79-99); RED BLOOD CELL COUNT(AUTO) 3.34 MIL/uL (4.00-5.50); RED CELL DISTRIBUTION WIDTH 16.9 % (11.0-15.5); WHITE BLOOD COUNT (AUTO) 13.8 K/uL (4.8-10.8)
[2023-11-09 01:19] LABS: POTASSIUM 3.2 mmol/L (3.5-5.1)
[2023-11-09 01:25] LABS: ALBUMIN 2.7 g/dL (3.5-5.0); BILIRUBIN,TOTAL 1.1 mg/dL (0.2-1.0); MAGNESIUM 1.1 mg/dL (1.80-2.40); PHOSPHORUS 1.5 mg/dL (2.5-4.9); TOTAL PROTEIN, SERUM 7.5 g/dL (6.0-8.3)
[2023-11-09] MEDS: LORAZEPAM 2 MG/ML 1 ML VIAL ONE (01:36)
[2023-11-09 02:17] LABS: ABG BASE EXCESS -1.4 mmol/L (-2.0-3.0); ABG HCO3 22.4 mmol/L (21.0-28.0); ABG OXYGEN SATURATION 98.7 % (95.0-99.0); ABG PCO2 34 mmHg (32-45); ABG PH 7.438 (7.35-7.450); CARBON MONOXIDE 0.2; DEVICE COMMENT N.C 2 RR; HHb 1.3; PO2, ARTERIAL BG 129.4 mmHg (83.0-108.0); VENT MODE, BG FNP (ROOM AIR)
[2023-11-09] MEDS: LEVETIRACETAM 500 MG/5 ML SD VIAL IV SCH ×2 (02:23→02:30)
[2023-11-09] MEDS: 0.9%NACL 1000ML 1,000 ML IV SCH (02:30)
[2023-11-09] MEDS ORDERED: POTASSIUM CHLORIDE 20MEQ/100ML 100 ML IV ONE (03:30)
[2023-11-09] MEDS: POTASSIUM CHLORIDE 20MEQ/100ML 100 ML IV ONE (05:18)
[2023-11-09 06:14] LABS: INR 0.98 (0.85-1.15); PROTHROMBIN TIME 10.6 SEC (9.6-11.6)
[2023-11-09 06:15] LABS: PARTIAL THROMBOPLASTIN TIME 28.3 SEC (26.3-35.5)
[2023-11-09] MEDS: KCL 20 MEQ ERTAB PO SCH (08:14)
[2023-11-09] MEDS: LEVETIRACETAM 1,000 MG in 0.9%NACL 100ML 100 ML IV SCH (09:43)
[2023-11-09] MEDS: POTASSIUM PHOS 15 mMOL+NS250ML 250 ML IV PRN (10:10)
[2023-11-09] MEDS ORDERED: IOHEXOL 350 MG/ML 100ML INFUS..BTL IV ONE (11:08)
[2023-11-09] MEDS ORDERED: POTASSIUM PHOS 15 mMOL+NS250ML 250 ML IV PRN (13:00)
[2023-11-09 13:20] LABS: MAGNESIUM 2.4 mg/dL (1.80-2.40)
[2023-11-09 13:22] LABS: POTASSIUM 2.9 mmol/L (3.5-5.1)
[2023-11-09] MEDS: POTASSIUM CHLORIDE 10% ELIXIR 20 MEQ/15 ML UDCUP PO PRN (14:13)
[2023-11-09] MEDS: POTASSIUM CHLORIDE 20MEQ/100ML 100 ML IV PRN (14:32)
[2023-11-09] MEDS: 0.9%NACL 10ML VIAL IV SCH (20:29)
[2023-11-09] MEDS ORDERED: VANCOMYCIN PROTOCOL PER PHARMACY IV SCH (23:00)
[2023-11-09] MEDS: MEROPENEM 1 GM in 0.9%NACL 100ML 100 ML IVPB SCH (23:00)
[2023-11-10] VITALS (41 sets, daily range): BP systolic 134–205; BP diastolic 52–157; PULSE 74–94; RESP 8–20; O2SAT 98–100
[2023-11-10 03:55] LABS: ABG OXYGEN SATURATION 78.3 % (95.0-99.0); BASE EXCESS,VENOUS BLOOD GAS -1.3 (-2.0-3.0); HCO3,VENOUS BLOOD GAS 24.1 (21.0-28.0); PCO2,VENOUS BLOOD GAS 43 (32-45); PH,VENOUS BLOOD GAS 7.362 (7.350-7.450); PO2,VENOUS BLOOD GAS 43.2 mmHg (35.0-45.0); VENT MODE, BG NC (ROOM AIR)
[2023-11-10 05:12] LABS: HEMATOCRIT 25.2 % (36-48); MEAN CORPUSCULAR HEMOGLOBIN 27.4 pg (27.0-33.0); MEAN CORPUSCULAR VOLUME 88.4 fL (79-99); RED BLOOD CELL COUNT(AUTO) 2.85 MIL/uL (4.00-5.50); RED CELL DISTRIBUTION WIDTH 17.2 % (11.0-15.5); WHITE BLOOD COUNT (AUTO) 7.8 K/uL (4.8-10.8)
[2023-11-10 05:24] LABS: INR 0.97 (0.85-1.15); PROTHROMBIN TIME 10.5 SEC (9.6-11.6)
[2023-11-10 05:38] LABS: ALANINE AMINOTRANSFERASE 11 U/L (12-78); ASPARTATE AMINOTRANSFERASE 11 U/L (10-37); BILIRUBIN,TOTAL 0.5 mg/dL (0.2-1.0); CARBON DIOXIDE 26 mmol/L (21-32); CHLORIDE 108 mmol/L (101-111); CHOLESTEROL 177 mg/dL (<200); CREATINE KINASE, TOTAL 8 U/L (21-232); CREATININE 1.1 mg/dL (0.5-1.0); GLOMERULAR FILTR. RATE CALC 56 mL/min (>90); GLUCOSE,RANDOM 118 mg/dL (70-105); HDL CHOLESTEROL 45 mg/dL (35-85); LDL DIRECT 109 mg/dL (0-99); POTASSIUM 3.6 mmol/L (3.5-5.1); SODIUM SERUM 144 mmol/L (136-145); TOTAL PROTEIN, SERUM 6.1 g/dL (6.0-8.3); TRIGLYCERIDES 140 mg/dL (30-200); UREA NITROGEN, BLOOD 6 mg/dL (7-18)
[2023-11-10 05:43] LABS: AMMONIA < 10 umol/L (11-32)
[2023-11-10] MEDS ORDERED: VANCOMYCIN 1.5 GM/250 ML BAG 250 ML IV SCH (06:45)
[2023-11-10] MEDS: MAGNESIUM 2GM PREMIX 50ML 50 ML IV PRN (07:23)
[2023-11-10] MEDS: AMLODIPINE 5 MG TAB PO SCH (07:42)
[2023-11-10] MEDS ORDERED: LACTATED RINGERS 1000ML 1,000 ML IV SCH (10:30)
[2023-11-10 10:41] LABS: HEMATOCRIT 26.2 % (36-48)
[2023-11-10 18:46] LABS: HEMATOCRIT 25.2 % (36-48)
[2023-11-10 23:04] LABS: HEMATOCRIT 25.1 % (36-48)
[2023-11-11] VITALS (10 sets, daily range): BP systolic 137–185; BP diastolic 56–93; PULSE 71–112; RESP 18–19; O2SAT 97
[2023-11-11] MEDS: CLONIDINE HCL 0.2 MG TABLET PO ONE (00:50)
[2023-11-11] MEDS: CLONIDINE HCL 0.2 MG TABLET PO STA (00:53)
[2023-11-11] MEDS ORDERED: CLONIDINE HCL 0.1 MG TABLET PO PRN (01:00)
[2023-11-11] MEDS: INSULIN HUMULIN R 100 UNIT/ML 3ML SQ SCH (05:51)
[2023-11-11 06:27] LABS: HEMATOCRIT 23.4 % (36-48)
[2023-11-11 06:43] LABS: MAGNESIUM 1.5 mg/dL (1.80-2.40); POTASSIUM 3.5 mmol/L (3.5-5.1)
[2023-11-11] MEDS ORDERED: COMPOUND IV MISC 1 EACH IVSOLN MISC PRN (10:30)
[2023-11-11 16:59] LABS: HEMATOCRIT 22.7 % (36-48)
[2023-11-11 20:21] LABS: PROTHROMBIN TIME 10.8 SEC (9.6-11.6)
[2023-11-11 20:22] LABS: PARTIAL THROMBOPLASTIN TIME 27.3 SEC (26.3-35.5)
[2023-11-11 23:05] LABS: HEMATOCRIT 24.2 % (36-48)
[2023-11-11] MEDS: LEVETIRACETAM 500 MG TABLET PO ONE (23:51)
[2023-11-11] MEDS: LEVETIRACETAM 500 MG TABLET PO SCH (23:51)
[2023-11-12] VITALS (8 sets, daily range): BP systolic 124–178; BP diastolic 52–76; PULSE 78–88; RESP 14–20; O2SAT 96–99
[2023-11-12] MEDS: KCL 20 MEQ ERTAB PO PRN (05:15)
[2023-11-12 05:25] LABS: HEMATOCRIT 24.7 % (36-48); MEAN CORPUSCULAR HEMOGLOBIN 27.8 pg (27.0-33.0); MEAN CORPUSCULAR HGB CONC 31.6 g/dL (32.0-36.0); MEAN CORPUSCULAR VOLUME 87.9 fL (79-99); RED BLOOD CELL COUNT(AUTO) 2.81 MIL/uL (4.00-5.50); RED CELL DISTRIBUTION WIDTH 17.5 % (11.0-15.5); WHITE BLOOD COUNT (AUTO) 9.6 K/uL (4.8-10.8)
[2023-11-12 05:34] LABS: CREATININE 1.3 mg/dL (0.5-1.0); MAGNESIUM 1.4 mg/dL (1.80-2.40); POTASSIUM 3.6 mmol/L (3.5-5.1)
[2023-11-12 05:35] LABS: INR 0.98 (0.85-1.15); PROTHROMBIN TIME 10.6 SEC (9.6-11.6)
[2023-11-12 05:36] LABS: PARTIAL THROMBOPLASTIN TIME 27.5 SEC (26.3-35.5)
[2023-11-12] MEDS ORDERED: LEVETIRACETAM 1,000 MG in 0.9%NACL 100ML 100 ML IV SCH (11:00)
[2023-11-12] MEDS: LEVETIRACETAM 500 MG TABLET PO SCH (12:14)
[2023-11-13] VITALS (8 sets, daily range): BP systolic 139–165; BP diastolic 61–71; PULSE 83–89; RESP 16–20; O2SAT 97–99
[2023-11-13 04:53] LABS: HEMATOCRIT 23.1 % (36-48); MEAN CORPUSCULAR HEMOGLOBIN 26.9 pg (27.0-33.0); MEAN CORPUSCULAR HGB CONC 31.6 g/dL (32.0-36.0); MEAN CORPUSCULAR VOLUME 85.2 fL (79-99); RED BLOOD CELL COUNT(AUTO) 2.71 MIL/uL (4.00-5.50); RED CELL DISTRIBUTION WIDTH 17.6 % (11.0-15.5); WHITE BLOOD COUNT (AUTO) 6.9 K/uL (4.8-10.8)
[2023-11-13 05:01] LABS: CREATININE 1.3 mg/dL (0.5-1.0); MAGNESIUM 1.5 mg/dL (1.80-2.40); POTASSIUM 3.8 mmol/L (3.5-5.1)
[2023-11-13] MEDS: LEVETIRACETAM 1,000 MG in 0.9%NACL 100ML 100 ML IV SCH (10:01)
[2023-11-14] VITALS (7 sets, daily range): BP systolic 133–161; BP diastolic 55–73; PULSE 82–92; RESP 18–20; O2SAT 98
[2023-11-14 04:50] LABS: MEAN CORPUSCULAR HEMOGLOBIN 27.3 pg (27.0-33.0); MEAN CORPUSCULAR HGB CONC 32.1 g/dL (32.0-36.0); MEAN CORPUSCULAR VOLUME 85.1 fL (79-99); RED BLOOD CELL COUNT(AUTO) 2.82 MIL/uL (4.00-5.50); RED CELL DISTRIBUTION WIDTH 17.9 % (11.0-15.5)
[2023-11-14 05:03] LABS: CREATININE 1.4 mg/dL (0.5-1.0); MAGNESIUM 1.8 mg/dL (1.80-2.40); POTASSIUM 4.5 mmol/L (3.5-5.1)
[2023-11-15] VITALS (7 sets, daily range): BP systolic 125–168; BP diastolic 58–69; PULSE 79–83; RESP 14–20; O2SAT 98–100
[2023-11-15 05:21] LABS: HEMATOCRIT 24.9 % (36-48); MEAN CORPUSCULAR HGB CONC 31.7 g/dL (32.0-36.0); RED BLOOD CELL COUNT(AUTO) 2.93 MIL/uL (4.00-5.50); RED CELL DISTRIBUTION WIDTH 17.4 % (11.0-15.5); WHITE BLOOD COUNT (AUTO) 6.7 K/uL (4.8-10.8)
[2023-11-15 05:34] LABS: CREATININE 1.4 mg/dL (0.5-1.0); MAGNESIUM 1.6 mg/dL (1.80-2.40); POTASSIUM 4.2 mmol/L (3.5-5.1)
[2023-11-16 03:00] VITALS: BP 161/74; PULSE 85; RESP 14
[2023-11-16 07:19] VITALS: BP 128/66; PULSE 81; RESP 17
[2023-11-16 07:33] VITALS: PULSE 78; RESP 20; O2SAT 98
[2023-11-16 08:00] VITALS: O2SAT 99
[2023-11-16 11:05] VITALS: BP 116/61; PULSE 83; RESP 18
[2023-11-16] MEDS ORDERED: POTASSIUM CHLORIDE 10MEQ SR TAB PO PRN (16:00)
== END 2023-11-16 18:20 | DRG 907 ==
LOC: EDH 00:16 → EDHIP 05:35 → 3DH 06:23 → 2BH 11-09 01:40 → 3CH 11-10 18:00
PROVIDERS: ADMIT Internal Medicine Infectious Disease; ATTEND Internal Medicine Infectious Disease
PROC: 30233N1 Transfusion of Nonautologous Red Blood Cells into Peripheral Vein, Percutaneous Approach (ICD-10-PCS; 2023-10-23)
PROC: 4A02XM4 Measurement of Cardiac Total Activity, External Approach (ICD-10-PCS; 2023-10-25)
PROC: 3E073KZ Introduction of Other Diagnostic Substance into Coronary Artery, Percutaneous Approach (ICD-10-PCS; 2023-10-25)
PROC: 0WPF0JZ Removal of Synthetic Substitute from Abdominal Wall, Open Approach (ICD-10-PCS; principal; 2023-11-04 14:36)
PROC: 0DB80ZZ Excision of Small Intestine, Open Approach (ICD-10-PCS; 2023-11-04 14:36)
PROC: 0DBU0ZZ Excision of Omentum, Open Approach (ICD-10-PCS; 2023-11-04 14:36)
PROC: 0DTJ0ZZ Resection of Appendix, Open Approach (ICD-10-PCS; 2023-11-04 14:36)
PROC: 0DNW0ZZ Release Peritoneum, Open Approach (ICD-10-PCS; 2023-11-04 14:36)
PROC: 3E0M05Z Introduction of Adhesion Barrier into Peritoneal Cavity, Open Approach (ICD-10-PCS; 2023-11-04 14:36)
PROC: 02HV33Z Insertion of Infusion Device into Superior Vena Cava, Percutaneous Approach (ICD-10-PCS; 2023-11-09)
PROC: 4A00X4Z Measurement of Central Nervous Electrical Activity, External Approach (ICD-10-PCS; 2023-11-11)
DX: T85.79XA Infection and inflammatory reaction due to other internal prosthetic devices, implants and grafts, initial encounter (principal); A41.9 Sepsis, unspecified organism; G93.41 Metabolic encephalopathy; N17.0 Acute kidney failure with tubular necrosis; K65.1 Peritoneal abscess; K63.2 Fistula of intestine; N10 Acute pyelonephritis; I50.30 Unspecified diastolic (congestive) heart failure; K92.1 Melena; I13.0 Hypertensive heart and chronic kidney disease with heart failure and stage 1 through stage 4 chronic kidney disease, or unspecified chronic kidney disease; K56.7 Ileus, unspecified; Z16.24 Resistance to multiple antibiotics; E87.6 Hypokalemia; D64.9 Anemia, unspecified; B96.1 Klebsiella pneumoniae [K. pneumoniae] as the cause of diseases classified elsewhere; B96.20 Unspecified Escherichia coli [E. coli] as the cause of diseases classified elsewhere; E66.01 Morbid (severe) obesity due to excess calories; K66.0 Peritoneal adhesions (postprocedural) (postinfection); I27.20 Pulmonary hypertension, unspecified; E83.42 Hypomagnesemia; E11.22 Type 2 diabetes mellitus with diabetic chronic kidney disease; E78.00 Pure hypercholesterolemia, unspecified; G31.9 Degenerative disease of nervous system, unspecified; N18.9 Chronic kidney disease, unspecified; R56.9 Unspecified convulsions; Z79.4 Long term (current) use of insulin; Z82.41 Family history of sudden cardiac death; Z82.49 Family history of ischemic heart disease and other diseases of the circulatory system; Z83.3 Family history of diabetes mellitus; Z86.73 Personal history of transient ischemic attack (TIA), and cerebral infarction without residual deficits; Z90.710 Acquired absence of both cervix and uterus; F32.A Depression, unspecified; Y83.8 Other surgical procedures as the cause of abnormal reaction of the patient, or of later complication, without mention of misadventure at the time of the procedure; Y92.89 Other specified places as the place of occurrence of the external cause; Y73.2 Prosthetic and other implants, materials and accessory gastroenterology and urology devices associated with adverse incidents; Z90.49 Acquired absence of other specified parts of digestive tract; Z68.35 Body mass index [BMI] 35.0-35.9, adult
CPT/HCPCS: 36415; 36430; 36600; 70450; 70496; 70498; 70551; 71045; 72125; 74177; 78278; 78452; 80048; 80053; 80061; 81001; 82140; 82270; 82306; 82435; 82550; 82607; 82803; 82947; 82948; 83036; 83605; 83735; 84100; 84132; 84145; 84146; 84295; 84425; 84484; 85014; 85018; 85025; 85027; 85610; 85730; 86850; 86900; 86901; 86923; 87040; 87070; 87076; 87086; 87186; 88302; 88305; 88307; 92522; 92610; 93005; 93017; 93306; 93880; 95819; 96365; 96374; 96375; A4344; A6248; A9500; A9512; C1894; G0378; J0330; J0360; J0690; J0696; J1100; J1170; J1650; J1815; J1885; J1953; J2001; J2060; J2185; J2250; J2371; J2405; J2470; J2543; J2704; J2710; J2785; J2795; J3010; J3475; J3480; J3490; J7040; J7070; P9016; P9045; Q9967; A4216; A4222; A4223; A4452; A4600; A4649; A4930; J0665; J3370

== ENCOUNTER 2024-05-13 10:09 | Inpatient (IN) | payer BC, OTHER ==
[~2024-05-13] VITALS: Ht 152.4 cm; Wt 98.4 kg
[~2024-05-13 10:09] MED LIST changes: +AMLO-257 PO; -CITA10TA89 PO; +CITA20TA17 PO; -INSLAN SQ; +INSU100I94 SQ; +MELO-108 PO; -ONDA-104 PO; -ROSU5TAB43 PO; +ROSU5TAB51 PO; -SEMA0.258 SQ; +SERT-439 PO
--- NOTE | 2024-05-13 10:22 | ERN ---
ED Note History of Present Illness Stated Complaint: SOB THIS AM Chief Complaint: Shortness of Breath Time Seen by MD: 10:13 Dictation: 63-YEAR-OLD FEMALE COMING IN IN TODAY VIA EMS WITH TWO COMPLAINTS 1ST COMPLAINT IS SHE WAS IN THE SHOWER THIS MORNING SHE NOTICED HER RIGHT BREAST WAS RED AND SWOLLEN ALSO, SHE HAS BEEN SHORT OF BREATH FOR SEVERAL DAYS. NO FEVER NO CHILLS NO NAUSEA VOMITING Allergies: Coded Allergies: No Known Drug Allergies (Unverified Allergy, Unknown, 05/31/22) Home Meds Reported Medications Insulin Glargine-Yfgn (Insulin Glargine-Yfgn) 100 Unit/Ml (3 Ml) Insuln.pen, 30 UNITS SQ DAILY 02/25/24 Amlodipine Besylate (Amlodipine Besylate) 5 Mg Tablet, 1 TAB PO DAILY for 30 Days, #30 TAB 0 Refills 02/18/24 Rosuvastatin Calcium (Rosuvastatin Calcium) 5 Mg Tablet, 1 TAB PO DAILY for high cholesterol for 30 Days, #30 TAB 0 Refills 02/18/24 Meloxicam (Meloxicam) 15 Mg Tablet, 1 TAB PO DAILY for 30 Days, #30 TAB 0 Refills 02/18/24 Gabapentin (Gabapentin) 100 Mg Capsule, 300 MG PO TID, CAP 02/18/24 Sertraline HCl (Sertraline HCl) 50 Mg Tablet, 1 TAB PO HS for 30 Days, #30 TAB 0 Refills 02/18/24 Omeprazole (Omeprazole) 40 Mg Capsule.dr, 1 CAP PO DAILY for 30 Days, #30 CAP 0 Refills 02/18/24 Citalopram Hydrobromide (Celexa) 20 Mg Tablet, 1 TAB PO DAILY for 30 Days, #30 TAB 0 Refills 02/18/24 Lisinopril (Lisinopril) 20 Mg Tablet, 1 TAB PO DAILY for 30 Days, #30 TAB 0 Refills 02/18/24 Past Medical History Past Medical History: Diabetes-Type II, High Cholesterol, Hypertension, Other Additional Past Medical Hx: GLAUCOMA Surgical History: Appendectomy, Hysterectomy, Cholecystectomy, Other Surgical History Other: CATARAC Family History: Negative Social History: Negative, Lives with family History: Not Applicable RN Note Reviewed/Agreed w/PFSH: Yes Review of System Dictation CONSTITUTIONAL: NEGATIVE EXCEPT FOR HPI HEAD/FACE: NEGATIVE EXCEPT FOR HPI EENT: NEGATIVE EXCEPT FOR HPI RESPIRATORY: NEGATIVE EXCEPT FOR HPI SOB RIGHT BREAST PAIN SWELLING ERYTHEMA GASTROINTESTINAL/ABDOMINAL: NEGATIVE EXCEPT FOR HPI GENITOURINARY: NEGATIVE EXCEPT FOR HPI MUSCULOSKELETAL: NEGATIVE EXCEPT FOR HPI INTEGUMENTARY: NEGATIVE EXCEPT FOR HPI NEUROLOGICAL/PSYCH: NEGATIVE EXCEPT FOR HPI HEMATOLOGIC/LYMPHATIC: NEGATIVE EXCEPT FOR HPI ALL SYSTEMS NEGATIVE, EXCEPT NOTED ABOVE. 13 POINT REVIEW OF SYSTEMS ASSESSED AND ALL NEGATIVE EXCEPT FOR ABOVE. Initial Vital Sign VS Vital Signs Date Time Temp Pulse Resp B/P (MAP) Pulse Ox O2 Delivery O2 Flow Rate FiO2 05/13/24 10:10 74 16 188/84 99 Nasal Cannula 2.0 05/13/24 10:35 97.5 28 Physical Exam Dictation VITAL SIGNS REVIEWED JULIANE RN IN ROOM WITH THE EXAM GENERAL APPEARANCE: ALERT, ORIENTED X 3, NO ACUTE DISTRESS, WELL DEVELOPED, NOURISHED. HEAD AND FACE: NON-TRAUMATIC. EYES: PERRL, PINK CONJUNCTIVAS, EYELID NO TRAUMA, ANTERIOR CHAMBER WITH ARCUS SENILIS. EARS: PINNAS INTACT AND NO SIGNS OF TRAUMA OR ERYTHEMA EAR CANALS CLEAR AND NO DISCHARGE TM NO ERYTHEMA NOSE: NO DISCHARGE, NO BLEEDING. OROPHARYNX: MOUTH NORMAL, TONGUE PINK, PHARYNX CLEAR,NO ERYTHEMA, TONSILS NO EXUDATES, NO ABSCESSES NOTED, MUCOUS MEMBRANE MOIST NECK: SUPPLE, NON-TENDER, NO THYROMEGALY, NO MASSES, NO JVD, NO BRUITS BREAST: BILATERAL BREASTS ARE SUPPLE SYMMETRIC, NO ERYTHEMA NO DIMPLING NO SKIN CHANGES. NO NIPPLE DISCHARGE CHEST:NO TENDERNESS, NO CREPITUS, NO PARADOXICAL MOVEMENT, NO RETRACTIONS LUNGS:CLEAR, WELL-VENTILATED, SYMMETRIC, NO RALES, NO WHEEZING, NO RHONCHI, NO STRIDOR, GOOD BREATH SOUNDS BILATERALLY HEART: REGULAR RATE, REGULAR RHYTHM, NO MURMUR, NO GALLOPS VASCULAR: NO PERIPHERAL EDEMA, ABDOMEN: SOFT, POSITIVE BOWEL SOUNDS, NONDISTENDED, NO GUARDING, NONTENDER, NO REBOUND, NO MASSES NO HEPATOMEGALY, NO SPLENOMEGALY, NO CONROY'S SIGN, NO HERNIAS. RECTAL: DEFERRED GENITAL: DEFERRED NEUROLOGICAL: NORMAL SPEECH, MOTOR FUNCTION INTACT, SENSORY FUNCTION INTACT MUSCULOSKELETAL: NECK NONTENDER, FULL RANGE OF MOTION, BACK NONTENDER, FULL R JARETH OF MOTION, EXTREMITIES: NONTENDER, FULL RANGE OF MOTION SKIN: COLOR PINK, DRY, NO TURGOR, NO RASH, NO LACERATIONS, NO ABRASIONS, NO CONTUSIONS. LYMPHATIC: DEFERRED Results (Laboratory/Radiology) Laboratory/Radiology Laboratory Tests Test 05/13/24 10:29 05/13/24 10:35 05/13/24 12:08 White Blood Count 7.4 K/uL (4.8-10.8) Red Blood Count 3.41 MIL/uL (4.00-5.50) L Hemoglobin 8.4 g/dL (12.0-16.0) L Hematocrit 28.6 % (36-48) L Mean Corpuscular Volume 83.9 fL (79-99) Mean Corpuscular Hemoglobin 24.6 pg (27.0-33.0) L Mean Corpuscular Hemoglobin Concent 29.4 g/dL (32.0-36.0) L Red Cell Distribution Width 20.9 % (11.0-15.5) H Platelet Count 237 K/uL (130-400) Mean Platelet Volume 9.6 fL (7.5-10.5) Immature Granulocyte % (Auto) 0.3 % (0-1) Neutrophils (%) (Auto) 81.2 % (40.0-77.0) H Lymphocytes (%) (Auto) 9.5 % (21.0-51.0) L Monocytes (%) (Auto) 5.0 % (3.0-13.0) Eosinophils (%) (Auto) 3.3 % (0.0-8.0) Basophils (%) (Auto) 0.7 % (0.0-5.0) Neutrophils # (Auto) 6.0 K/uL (1.8-7.7) Lymphocytes # (Auto) 0.7 K/uL (1.0-4.8) L Monocytes # (Auto) 0.4 K/uL (0.1-1.0) Eosinophils # (Auto) 0.24 K/uL (0.00-0.70) Basophils # (Auto) 0.05 K/uL (0.00-0.20) Absolute Immature Granulocyte (auto 0.02 K/uL (0-1) Nucleated Red Blood Cells 0.0 % (0.0-0.19) White Cell Morphology Comment See comments Red Blood Cell Morphology See comments Sodium Level 142 mmol/L (136-145) Potassium Level 4.1 mmol/L (3.5-5.1) Chloride Level 107 mmol/L (101-111) Carbon Dioxide Level 29 mmol/L (21-32) Blood Urea Nitrogen 25 mg/dL (7-18) H Creatinine 1.4 mg/dL (0.5-1.0) H Glomerular Filtration Rate Calc 42 mL/min (>90) Random Glucose 145 mg/dL (70-105) H Total Calcium 8.9 mg/dL (8.5-10.1) Magnesium Level 1.80 mg/dL (1.80-2.40) Troponin I High Sensitivity 89 ng/L (4-50) *H B-Type Natriuretic Peptide 845 pg/mL (0-100) H SARS-CoV-2 Antigen (Rapid) PRESUMPTIVE NEGATIVE Urine Color LIGHT-YELLOW (YELLOW) Urine Appearance CLOUDY (CLEAR) H Urine pH 5.5 (5.0-8.0) Urine Specific [place] 1.015 (1.001-1.031) Urine Protein 70 mg/dL (NEGATIVE) H Urine Glucose (UA) NEGATIVE mg/dL (NEGATIVE) Urine Ketones NEGATIVE mg/dL (NEGATIVE) Urine Occult Blood +- (TRACE) (NEGATIVE) H Urine Nitrate NEGATIVE (NEGATIVE) Urine Bilirubin NEGATIVE mg/dL (NEGATIVE) Urine Urobilinogen 0.2 mg/dL (0.2-1.0) Urine Leukocyte Esterase 500 Michelet/uL (NEGATIVE) H Urine RBC 2-5 /HPF (0-1) H Urine WBC >100 /HPF (0-1) H Urine Squamous Epithelial Cells RARE /HPF (0-2) Urine Bacteria RARE /HPF (None Seen) RTABLE CHEST RADIOGRAPH INDICATION: SHORTNESS A BREATH COMPARISON: 11/09/2023 FINDINGS: Image is somewhat underexposed, but the radiologic examination is still believed to be of reasonable diagnostic quality. Heart size is normal. The pulmonary vascularity and jose appear normal. Linear opacities near the right lung base without consolidation. Right costophrenic angle is blunted. No pneumothorax detected. IMPRESSION: Small right pleural effusion with subjacent passive atelectasis. Labs Reviewed?: Yes EKG Comment: EKG SINUS RHYTHM/HEART RATE 72/AXIS NORMAL/NONSPECIFIC T-WAVE CHANGES IN LATERAL LEADS ED Course ED Course Orders Procedure Category Date Status Time Covid19 (Sars Antigen LAB 05/13/24 Complete Rapid) 10:20 Cbc With Differential LAB 05/13/24 Complete 10:20 B-Type Natriuretic LAB 05/13/24 Complete Peptide 10:20 Chest 1vw RAD 05/13/24 Resulted 10:20 12 Lead Ekg Tracing- EKG 05/13/24 Complete Technical 10:20 Magnesium LAB 05/13/24 Complete 10:20 Troponin I High LAB 05/13/24 Complete Sensitivity 10:20 Urinalysis Profile LAB 05/13/24 Complete 10:20 Basic Metabolic Panel LAB 05/13/24 Complete 10:20 Furosemide 40mg Vial PHA 05/13/24 Complete (Lasix 40mg Vial) 12:00 Nurse Driven Green HEATHER 05/13/24 In Process Removal Pro 12:21 Culture Urine DEJA 05/13/24 In Process 12:33 Ceftriaxone 1g Vial PHA 05/13/24 Complete (Rocephine 1g Inj) 13:00 Current Medications Medications (Trade) Dose Ordered Sig/Aleksey Route PRN Reason Start Time Stop Time Status Last Admin Dose Admin Ceftriaxone Sodium (ROCEphine 1G INJ) 1 gm ONCE ONCE IVPB 05/13/24 13:00 05/13/24 13:01 DC 05/13/24 13:48 Furosemide (LASix 40MG VIAL) 80 mg ONCE ONCE IVP 05/13/24 12:00 05/13/24 12:01 DC 05/13/24 12:11 Vital Signs Date Time Temp Pulse Resp B/P (MAP) Pulse Ox O2 Delivery O2 Flow Rate FiO2 05/13/24 13:09 97.5 70 18 178/73 97 Nasal Cannula* 2.0 N/A 05/13/24 10:35 97.5 72 18 168/67 96 Nasal Cannula* 2 28 05/13/24 10:10 74 16 188/84 99 Nasal Cannula 2.0 THIRTEEN 20, PATIENT IS HEMODYNAMICALLY STABLE SHE HAS FLUID OVERLOAD, ELEVATED TROPONIN, SMALL RIGHT PLEURAL EFFUSION, ACUTE CYSTITIS WITH HEMATURIA AND WEAKNESS. GREEN CATHETER WAS INTRODUCED DUE TO PATIENT TOO WEAK TO GET UP AND GO TO THE RESTROOM. SHE HAS BEEN GIVEN ROCEPHIN AND LASIX, SHE WILL BE ADMITTED TO THE HOSPITAL. [address] HAND REVIEWED CHEST X-RAY LABS EKG AND INTERVENE FOR UTI AND FLUID OVERLOAD. HE AGREED TO ADMIT PATIENT. HEART Score Response (Comments) Value EKG: Repolarization changes 1 Age: > 65yrs (+2) 2 Risk Factors: 3+ risk factors (+2) 2 Initial Troponin: Normal limit (0) 0 Total 5 Medical Decision Making MDM MDM: DIFFERENTIAL DIAGNOSIS: ACS/AMI/ELECTROLYTE IMBALANCE/DEHYDRATION/PNEUMONIA/BRONCHITIS/UTI/MASTITIS RATIONALE: TESTS CONSIDERED AND ORDERED SECONDARY TO SHARED DECISION MAKING INCLUDE: LABS, ECG AND RADIOLOGY PREVIOUS OUTSIDE RECORDS REVIEWED: OLD ER VISITS. RISK OF COMPLICATION AND/OR MORBIDITY OR MORTALITY OF PATIENT MANAGEMENT: [id number] MEDICATIONS-PER MEDICATION RECONCILIATION NEED FOR HOSPITALIZATION: PATIENT DOES MEET CRITERIA FOR HOSPITALIZATION. PATIENT WILL NEED TO BE ADMITTED FOR FLUID OVERLOAD/ACUTE CYSTITIS AND ELEVATED TROPONIN AND FOLLOWED UP WITH REPEAT SERIAL ENZYMES AND EKGS NEED FOR EMERGENCY MAJOR/MINOR SURGERY: NO THERE ARE NO SOCIAL CONCERNS WITH THIS PATIENT. PRESCRIPTION DRUG MANAGEMENT PRESCRIPTIONS WILL INCLUDE SYMPTOMATIC CARE PATIENT'S PRIOR EXTERNAL MEDICAL RECORDS FROM OTHER ER VISITS WERE REVIEWED BY ME INDICATED. PRIOR TESTING AND RESULTS FROM PREVIOUS VISITS WERE REVIEWED. PRIOR TESTS WERE TAKEN INTO ACCOUNT WITH MEDICAL DECISION MAKING AND RESOURCE UTILIZATION, INDEPENDENT HISTORIAN/HISTORIANS WERE USED TO OBTAIN COMPLETE MEDICAL HISTORY. I INDEPENDENTLY INTERPRETED THE TEST THAT WERE PERFORMED, RESULTS WERE REVIEWED BY ME AND CONSIDERED FINDINGS ON RADIOLOGY IF ORDERED. MEDICAL MANAGEMENT AND EXAMINATION INTERPRETATION DISCUSSIONS WERE HAD BY ME WITH OTHER QUALIFIED HEALTHCARE PROFESSIONALS INDICATED FOR THE PATIENT'S CARE. DX & DISP Disposition: Inpatient Decision to Admit Time: 13:25 Departure Impression: Primary Impression: Pleural effusion, right Additional Impressions: Fluid overload, Acute cystitis with hematuria, Anemia of chronic renal failure, stage 3 (moderate), Stage 3 chronic kidney disease, Uncontrolled diabetes mellitus, Elevated troponin level not due to acute coronary syndrome Condition: Stable Referrals: MAGALY KESSLER MD (PCP) Time of Disposition: 13:25 I have reviewed the case, and I agree with, Diagnosis and Plan YARA BECKFORD NP May 13, 2024 10:22
[2024-05-13 10:36] LABS: BASOPHILS # (AUTO) 0.05 K/uL (0.00-0.20); BASOPHILS % (AUTO) 0.7 % (0.0-5.0); EOSINOPHILS # (AUTO) 0.24 K/uL (0.00-0.70); EOSINOPHILS % (AUTO) 3.3 % (0.0-8.0); HEMATOCRIT 28.6 % (36-48); IMMATURE GRANULOCYTE ABSOLUTE 0.02 K/uL (0-1); LYMPHOCYTES # (AUTO) 0.7 K/uL (1.0-4.8); LYMPHOCYTES % (AUTO) 9.5 % (21.0-51.0); MEAN CORPUSCULAR HEMOGLOBIN 24.6 pg (27.0-33.0); MEAN CORPUSCULAR HGB CONC 29.4 g/dL (32.0-36.0); MEAN CORPUSCULAR VOLUME 83.9 fL (79-99); MONOCYTES # (AUTO) 0.4 K/uL (0.1-1.0); NEUTROPHILS % (AUTO) 81.2 % (40.0-77.0); PLATELET COUNT (AUTO) 237 K/uL (130-400); RED BLOOD CELL COUNT(AUTO) 3.41 MIL/uL (4.00-5.50); RED CELL DISTRIBUTION WIDTH 20.9 % (11.0-15.5); WHITE BLOOD COUNT (AUTO) 7.4 K/uL (4.8-10.8)
[2024-05-13 10:56] LABS: CREATININE 1.4 mg/dL (0.5-1.0); MAGNESIUM 1.8 mg/dL (1.80-2.40); POTASSIUM 4.1 mmol/L (3.5-5.1)
--- NOTE | 2024-05-13 10:56 | HMCIMG ---
PORTABLE CHEST RADIOGRAPH INDICATION: SHORTNESS A BREATH COMPARISON: 11/09/2023 FINDINGS: Image is somewhat underexposed, but the radiologic examination is still believed to be of reasonable diagnostic quality. Heart size is normal. The pulmonary vascularity and jose appear normal. Linear opacities near the right lung base without consolidation. Right costophrenic angle is blunted. No pneumothorax detected. IMPRESSION: Small right pleural effusion with subjacent passive atelectasis.
[2024-05-13 11:02] LABS: B-TYPE NATRIURETIC PEPTIDE 845 pg/mL (0-100)
--- NOTE | 2024-05-13 11:38 | EKG ---
[facility] Test Date: 2024-05-13 Test Time: 10:37:18 Pat Name: TAYLOR WILD Department: [facility] Room: 412 Gender: F Inspector Toys: GEORGE : 1960 Requested By: YARA BECKFORD Order Number: [id number] Reading MD: Kevon Calix Measurements Intervals [place] Rate: 72 P: 39 [place]: 135 QRS: 55 QRSD: 78 T: 76 QT: 411 QTc: 451 Interpretive Statements Sinus rhythm Low voltage, extremity and precordial leads Nonspecific T abnormalities, lateral leads Compared to ECG 02/18/2024 12:10:06 T-wave abnormality now present Electronically Signed On 05-14-2024 10:26:56 NETWORK ANALYST by Kevon Calix Please click the below link to view image of tracing.
[2024-05-13] MEDS: furoSEMIDE 40MG VIAL IVP ONE (12:11)
[2024-05-13 12:31] LABS: APPEARANCE,URINE CLOUDY (CLEAR); BILIRUBIN,URINE NEGATIVE (NEGATIVE); COLOR,URINE LIGHT-YELLOW (YELLOW); GLUCOSE, URINE (UA) NEGATIVE (NEGATIVE); KETONES,URINE NEGATIVE (NEGATIVE); LEUKOCYTE ESTERASE ,URINE 500 Leu/uL (NEGATIVE); NITRATE,URINE NEGATIVE (NEGATIVE); PH,URINE 5.5 (5.0-8.0); PROTEIN,URINE 70 mg/dL (NEGATIVE); UROBILINOGEN,URINE 0.2 mg/dL (0.2-1.0)
[2024-05-13 12:33] LABS: ADD UA MICROSCOPIC YES
[2024-05-13 12:36] LABS: BACTERIA,URINE RARE /HPF (None Seen); SQUAMOUS EPITHELIAL CELL,UR RARE /HPF (0-2); WBC,URINE >100 /HPF (0-1)
--- NOTE | 2024-05-13 13:44 | NUR ---
[facility]STER - KENNEDI GOOD - [phone]
[2024-05-13] MEDS: cefTRIAXone 1G VIAL IVPB ONE (13:48)
[2024-05-13] MEDS ORDERED: GLUCAGON 1MG KIT 1 MG ML IM PRN (14:30)
[2024-05-13] MEDS ORDERED: acetaMINOPHEN 325 MG TAB PO PRN (14:30)
[2024-05-13] MEDS ORDERED: morPHINE 2 MG SYG IVP PRN (14:30)
[2024-05-13] MEDS ORDERED: ondanSETRON 4MG INJ IVP PRN (14:30)
[2024-05-13] MEDS ORDERED: MEROPENEM 1 GM in 0.9%NACL 100ML 100 ML IVPB SCH (15:30)
[2024-05-13] MEDS: MEROPENEM 1 GM VIAL IVPB SCH (15:55)
[2024-05-13] MEDS: INSULIN humuLIN R 100 UNIT/ML 3ML SQ SCH (16:30)
[2024-05-13] MEDS: hydrALAZine 20MG/ML VIAL IV PRN (17:57)
--- NOTE | 2024-05-13 18:52 | NUR ---
PENDING TRANSFER CALLED REPORT TO MED SURG NURSE BUT WAS BUSY AND TOLD ME "WILL CALL YOU BACK"
--- NOTE | 2024-05-13 19:44 | NUR ---
NURSE BUSY FOR REPORT AT THIS TIME.
--- NOTE | 2024-05-13 20:32 | NUR ---
NURSE BUSY FOR REPORT AT THIS TIME.
[2024-05-13 21:20] VITALS: BP 146/77; PULSE 84; RESP 19; TEMP 98.1; O2SAT 95
[2024-05-13 23:48] VITALS: BP 146/68; PULSE 75; RESP 18; TEMP 98.1
[2024-05-14 04:00] VITALS: BP 159/76; PULSE 79; RESP 19; TEMP 98.8
[2024-05-14 05:18] LABS: BASOPHILS # (AUTO) 0.03 K/uL (0.00-0.20); BASOPHILS % (AUTO) 0.5 % (0.0-5.0); EOSINOPHILS # (AUTO) 0.23 K/uL (0.00-0.70); EOSINOPHILS % (AUTO) 3.7 % (0.0-8.0); HEMATOCRIT 26.1 % (36-48); IMMATURE GRANULOCYTE ABSOLUTE 0.01 K/uL (0-1); LYMPHOCYTES # (AUTO) 0.7 K/uL (1.0-4.8); LYMPHOCYTES % (AUTO) 11.3 % (21.0-51.0); MEAN CORPUSCULAR HEMOGLOBIN 24.4 pg (27.0-33.0); MEAN CORPUSCULAR HGB CONC 29.5 g/dL (32.0-36.0); MEAN CORPUSCULAR VOLUME 82.6 fL (79-99); MONOCYTES # (AUTO) 0.4 K/uL (0.1-1.0); NEUTROPHILS # (AUTO) 4.9 K/uL (1.8-7.7); NEUTROPHILS % (AUTO) 77.3 % (40.0-77.0); PLATELET COUNT (AUTO) 222 K/uL (130-400); RED BLOOD CELL COUNT(AUTO) 3.16 MIL/uL (4.00-5.50); RED CELL DISTRIBUTION WIDTH 21.2 % (11.0-15.5); WHITE BLOOD COUNT (AUTO) 6.3 K/uL (4.8-10.8)
[2024-05-14 05:40] LABS: CREATININE 1.7 mg/dL (0.5-1.0); MAGNESIUM 1.7 mg/dL (1.80-2.40)
[2024-05-14 08:00] VITALS: BP 166/79; PULSE 77; RESP 20; TEMP 98.7; O2SAT 94
--- NOTE | 2024-05-14 08:19 | HP ---
DATE OF SERVICE: 05/13/2024 HISTORY AND PHYSICAL PRESENTING COMPLAINT: Chest pain, shortness of breath and leg swelling. HISTORY OF PRESENT ILLNESS: A 63-year-old female with morbid obesity, hypertension, diabetes mellitus, recurrent UTI, who was brought to the emergency room with the above complaint. The patient was found with increasing chest pain and shortness of breath by a sister and was brought to the emergency room. Chest pain is localized to the retrosternal area with no radiation. In the ER, the patient found with troponin of 89. BNP elevated at 845. The patient denies palpitations or orthopnea. The patient was found with low oxygen saturation and was placed on nasal cannula oxygen. EKG shows sinus rhythm with no STEMI. The patient also complained of urinary frequency, but no dysuria or fever. Urinalysis was positive. PAST MEDICAL HISTORY: * Diabetes mellitus. * Hypertension. * Obesity. * UTI. * Enterocutaneous fistula. * Infection with multidrug resistant organism. * Bacteremia. PAST SURGICAL HISTORY: * Hernia repair. * Fistula repair. * Hysterectomy. * Cholecystectomy. * LASIK eye surgery. ALLERGIES: No known drug allergies. MEDICATIONS: To be reviewed when made available. SOCIAL HISTORY: Lives alone. No alcohol, tobacco or illicit drug use. FAMILY HISTORY: Positive for diabetes mellitus. REVIEW OF SYSTEMS: CONSTITUTIONAL: Denies fever or chills. No weight loss or night sweats. EYES: No eye pain. No photophobia or diplopia. HENT: No sore throat. No rhinorrhea. NECK: No neck pain or neck swelling. RESPIRATORY: No cough. No hemoptysis or pleuritic pain. CARDIOVASCULAR: Positive for shortness of breath, chest pain. No palpitations or orthopnea. GASTROINTESTINAL: Denied nausea, vomiting, or abdominal pain. GENITOURINARY: No dysuria. Positive for urinary frequency. No hematuria. CENTRAL NERVOUS SYSTEM: No headache, dyspnea, or slurred speech. PSYCHIATRY: No depression. No suicidal ideation. MUSCULOSKELETAL: No joint swelling, erythema, or tenderness. EXTREMITIES: Positive for erythema. PHYSICAL EXAMINATION: GENERAL: Elderly female, awake. VITAL SIGNS: Temperature 98.5, pulse 73, respiratory rate 18, BP 188/84. EYES: No icterus. Pupils equal and reactive. HENT: No oral thrush seen. Moist oral mucosa. NECK: Supple. No JVD or thyromegaly. LUNGS: Good air entry. No rales. No rhonchi. CARDIOVASCULAR SYSTEM: S1, S2 regular. No murmur heard. ABDOMEN: Obese, soft, nontender. Bowel sounds present. CENTRAL NERVOUS SYSTEM: Awake, alert, oriented x 3. Bedbound. No focal deficits. SKIN: No rashes. No itchiness. LYMPHATIC: No peripheral lymphadenopathy. BACK: No deformity. No pressure ulcer. EXTREMITIES: Pitting edema of lower extremities. No cellulitis. LABORATORY DATA: Troponin 89. BNP 845. Sodium 142, potassium 4.1, BUN 25, creatinine 1.4. WBC 7.4, hemoglobin 8.4, platelet 237. Urinalysis; wbc's greater than 100. Leukocyte esterase 500. Influenza antigen negative. RADIOLOGY: Chest x-ray shows small right pleural effusion. ASSESSMENT: A 63-year-old female presenting with chest pain and shortness of breath. CURRENT PROBLEMS: Include: * Possible heart failure. * Urinary tract infection. * Diabetes mellitus. * Morbid obesity. * Anemia. * Debility. PLAN: * Admit the patient to medical floor with telemetry. * Troponin will be trended. * Start the patient on aspirin. * The patient will be placed on heparin. * Cardiology evaluation. * Start the patient on meropenem. * ADA diet. * Insulin sliding scale. * Follow up cultures. * Home medications will be reconciled. TID: [id number] RECEIPT: [id number] [email or web address]
[2024-05-14] MEDS: furoSEMIDE 40MG VIAL IV SCH (09:52)
[2024-05-14] MEDS: ENOXAPARIN SODIUM 40 MG/0.4 ML SYRINGE SQ SCH (09:52)
[2024-05-14 12:00] VITALS: BP 139/62; PULSE 77; RESP 18; TEMP 98.5
--- NOTE | 2024-05-14 12:14 | PN ---
INFECTIOUS DISEASE PROGRESS NOTE Date of Service: May 14, 2024 SUBJECTIVE: This is a 63-year-old female patient who presented to the hospital with chief complaint of chest pain and shortness of breath. On admission patient's troponin level was 89 and the BNP was 845. A chest x-ray showed right pleural effusion. Family Member Caretaker has been consulted. Patient was seen and examined at bedside in room 412. Patient is awake, alert and able to communicate needs well. Patient is currently on Meropenem for urine infection. [place] catheter draining clear yell ow urine. We will follow up on the urine cultures final results. Continues on renal failure, BUN is 27 and a creatinine of 1.7. No fever, temperature is 98.8 and a WBC of 6.3. Patient voicing some tenderness on the right side of the abdomen on palpation. We will continue to monitor. PHYSICAL EXAM EYES: Anicteric. Pupils equal and reactive. HENT: No oral thrush seen, moist Oral mucosa. NECK: Supple, no JVD or thyromegaly. LUNGS: Good air entry. No rales, no rhonchi. CARDIOVASCULAR: S1, S2 regular. No murmur heard. ABDOMEN: Soft, bowel sounds present, no organomegaly. Tenderness on the right side. CENTRAL NERVOUS SYSTEM: Awake, alert, oriented x 3. SKIN: No rashes, no swelling. LYMPHATICS: No peripheral lymphadenopathy MUSCULOSKELETAL: No joint swelling, erythema or tenderness. EXTREMITIES: No cyanosis or clubbing BACK: No deformity, no pressure ulcer. GENITOURINARY: No dysuria or hematuria. [place] catheter. Vital Sign (Last 12 Hours) 05/14/24 05/14/24 05/14/24 04:00 08:00 08:00 Temp 98.8 98.8 Pulse 79 77 Resp 19 20 B/P (MAP) 159/76 166/79 Pulse Ox 93 94 92 O2 Delivery Nasal Cannula Nasal Cannula* Room Air O2 Flow Rate 3.0 3 FiO2 32 21 Intake & Output (last 24hrs) 05/13/24 05/13/24 05/14/24 15:00 23:00 07:00 Output Total 1900 ml 940 ml Balance -1900 ml -940 ml LABS: Laboratory: Test 05/14/24 11:28 05/14/24 11:01 05/14/24 05:04 05/13/24 12:08 Range/Units Whole Blood Glucose 126 H 70-110 MG/DL Bedside Glucose Comment Notified Nurse Troponin I High Sensitivity 88 *H 4-50 ng/L White Blood Count 6.3 4.8-10.8 K/uL Red Blood Count 3.16 L 4.00-5.50 MIL/uL Hemoglobin 7.7 L 12.0-16.0 g/dL Hematocrit 26.1 L 36-48 % Mean Corpuscular Volume 82.6 79-99 fL Mean Corpuscular Hemoglobin 24.4 L 27.0-33.0 pg Mean Corpuscular Hemoglobin Concent 29.5 L 32.0-36.0 g/dL Red Cell Distribution Width 21.2 H 11.0-15.5 % Platelet Count 222 130-400 K/uL Mean Platelet Volume 9.4 7.5-10.5 fL Immature Granulocyte % (Auto) 0.2 0-1 % Neutrophils (%) (Auto) 77.3 H 40.0-77.0 % Lymphocytes (%) (Auto) 11.3 L 21.0-51.0 % Monocytes (%) (Auto) 7.0 3.0-13.0 % Eosinophils (%) (Auto) 3.7 0.0-8.0 % Basophils (%) (Auto) 0.5 0.0-5.0 % Neutrophils # (Auto) 4.9 1.8-7.7 K/uL Lymphocytes # (Auto) 0.7 L 1.0-4.8 K/uL Monocytes # (Auto) 0.4 0.1-1.0 K/uL Eosinophils # (Auto) 0.23 0.00-0.70 K/uL Basophils # (Auto) 0.03 0.00-0.20 K/uL Absolute Immature Granulocyte (auto 0.01 0-1 K/uL Nucleated Red Blood Cells 0.0 0.0-0.19 % Sodium Level 144 136-145 mmol/L Potassium Level 4.0 3.5-5.1 mmol/L Chloride Level 108 101-111 mmol/L Carbon Dioxide Level 28 21-32 mmol/L Blood Urea Nitrogen 27 H 7-18 mg/dL Creatinine 1.7 H 0.5-1.0 mg/dL Glomerular Filtration Rate Calc 33 >90 mL/min Random Glucose 86 70-105 mg/dL Hemoglobin A1c 6.0 4.0-6.0 % Estimated Average Glucose (eAG) 126 70-126 mg/dL Total Calcium 8.0 L 8.5-10.1 mg/dL Magnesium Level 1.70 L 1.80-2.40 mg/dL Urine Color LIGHT-YELLOW YELLOW Urine Appearance CLOUDY H CLEAR Urine pH 5.5 5.0-8.0 Urine Specific [place] 1.015 1.001-1.031 Urine Protein 70 H NEGATIVE mg/dL Urine Glucose (UA) NEGATIVE NEGATIVE mg/dL Urine Ketones NEGATIVE NEGATIVE mg/dL Urine Occult Blood +- (TRACE) H NEGATIVE Urine Nitrate NEGATIVE NEGATIVE Urine Bilirubin NEGATIVE NEGATIVE mg/dL Urine Urobilinogen 0.2 0.2-1.0 mg/dL Urine Leukocyte Esterase 500 H NEGATIVE Michelet/uL Urine RBC 2-5 H 0-1 /HPF Urine WBC >100 H 0-1 /HPF Urine Squamous Epithelial Cells RARE 0-2 /HPF Urine Bacteria RARE None Seen /HPF Test 05/13/24 10:35 05/13/24 10:29 Range/Units SARS-CoV-2 Antigen (Rapid) PRESUMPTIVE NEGATIVE NEGATIVE White Cell Morphology Comment See comments Red Blood Cell Morphology See comments B-Type Natriuretic Peptide 845 H 0-100 pg/mL DIAGNOSTICS / RADIOLOGY: PATIENT: TAYLOR WILD MR#: [id number] : 1960 SEX: F AGE: 63 LOCATION: [facility] ORDER [id number] STATUS: [facility] REPORT#: [id number] SERVICE 1020 REASON: SHORTNESS A BREATH ORDERING PHYSICIAN: YARA BECKFORD NP PROCEDURE: CXR1VW - CHEST 1VW PORTABLE CHEST RADIOGRAPH INDICATION: SHORTNESS A BREATH COMPARISON: 11/09/2023 FINDINGS: Image is somewhat underexposed, but the radiologic examination is still believed to be of reasonable diagnostic quality. Heart size is normal. The pulmonary vascularity and jose appear normal. Linear opacities near the right lung base without consolidation. Right costophrenic angle is blunted. No pneumothorax detected. IMPRESSION: Small right pleural effusion with subjacent passive atelectasis. ASSESSMENT: Possible congestive heart failure. Right pleural effusion. Urinary tract infection. Diabetes mellitus. Anemia. Morbid obesity. Debility. PLAN: Continue meropenem. Pending cardiology evaluation by Dr. Walker. Continue diuretics. Troponin were trended. Glucometer checks a.c./hs and cover with insulin per sliding scale protocol. Physical therapy to evaluate and treat. Home medications has been reviewed and reconciled. We will follow up on the urine culture final results. We will monitor electrolytes. This case was reviewed and discussed with my supervising physician and the above assessment and plan was formulated and agreed upon. ATTESTATION BY PHYSICIAN I have seen and examined the patient. I reviewed the documentation, medical decision making, and treatment plan as noted by the mid-level provider above. I agree with the findings and plan of care. VALENTINE HAND MD, M[facility]TA L [facility] May 14, 2024 12:14
[2024-05-14 16:00] VITALS: BP 170/79; PULSE 77; RESP 20; TEMP 98.1
--- NOTE | 2024-05-14 16:18 | NUR ---
[facility] CM SPOKE TO PT ASSESSMENT DONE. PATIENT WAS INDEPENDENT PRIOR TO ADMISSION, LIVES AT HOME ALONE. PATIENT HAS A WALKER, CANE, WHEELCHAIR. DENIES ANY OTHER EQUIPMENT/SERVICES. FEELS SAFE TO GO BACK HOME, SISTER ABLE TO ASSIST WITH TRANSPORTATION AND NEEDS NECESSARY. [facility] HOME VS SNF PENDING DR YAZAN PRICE. CM TO CONTINUE TO FOLLOW UP. Addendum: 05/15/24 at 1620 by LIANET ROBLES LVN CM Amended: Links added.
[2024-05-14 19:40] VITALS: BP 163/63; PULSE 80; RESP 21; TEMP 97.9
[2024-05-14] MEDS: atorVAStatin 10 MG TABLET PO SCH (20:38)
[2024-05-14] MEDS: GABApentin 100 MG CAPSULE PO SCH (20:38)
[2024-05-14] MEDS: SERTraline HCL 50 MG TABLET PO SCH (20:38)
[2024-05-14 23:23] VITALS: BP 155/70; PULSE 78; RESP 22; TEMP 97.9
[2024-05-14] MEDS ORDERED: PHARMACY COMMUNICATION MISC SCH (23:30)
[2024-05-15 03:31] VITALS: BP 148/76; PULSE 77; RESP 21; TEMP 97.8
[2024-05-15 05:10] LABS: BASOPHILS # (AUTO) 0.06 K/uL (0.00-0.20); BASOPHILS % (AUTO) 0.9 % (0.0-5.0); EOSINOPHILS # (AUTO) 0.27 K/uL (0.00-0.70); EOSINOPHILS % (AUTO) 4.1 % (0.0-8.0); HEMATOCRIT 29.2 % (36-48); IMMATURE GRANULOCYTE ABSOLUTE 0.02 K/uL (0-1); LYMPHOCYTES # (AUTO) 0.7 K/uL (1.0-4.8); LYMPHOCYTES % (AUTO) 9.9 % (21.0-51.0); MEAN CORPUSCULAR HEMOGLOBIN 24.4 pg (27.0-33.0); MEAN CORPUSCULAR HGB CONC 29.5 g/dL (32.0-36.0); MONOCYTES # (AUTO) 0.4 K/uL (0.1-1.0); MONOCYTES % (AUTO) 6.7 % (3.0-13.0); NEUTROPHILS # (AUTO) 5.2 K/uL (1.8-7.7); NEUTROPHILS % (AUTO) 78.1 % (40.0-77.0); PLATELET COUNT (AUTO) 140 K/uL (130-400); RED BLOOD CELL COUNT(AUTO) 3.52 MIL/uL (4.00-5.50); RED CELL DISTRIBUTION WIDTH 21.1 % (11.0-15.5); WHITE BLOOD COUNT (AUTO) 6.6 K/uL (4.8-10.8)
[2024-05-15 05:17] LABS: CREATININE 1.5 mg/dL (0.5-1.0); MAGNESIUM 1.5 mg/dL (1.80-2.40); POTASSIUM 3.6 mmol/L (3.5-5.1)
[2024-05-15] MEDS: PANTOPrazole 40 MG TAB DR PO SCH (06:06)
[2024-05-15 08:00] VITALS: BP 180/73; PULSE 72; RESP 16; TEMP 98.2; O2SAT 92
[2024-05-15] MEDS ORDERED: PoTASSium chloRIDE 20MEQ/100ML 100 ML IV PRN (08:30)
[2024-05-15] MEDS ORDERED: PoTASSium chl 10% ELIXIR 20MEQ 20 MEQ/15 ML UDCUP PO PRN (08:30)
[2024-05-15] MEDS: PoTASSium chloRIDE 20MEQ ER 20 MEQ ERTAB PO PRN (09:17)
[2024-05-15] MEDS: MELOXICAM 7.5 MG TABLET PO SCH (09:17)
[2024-05-15] MEDS: amLODIPine 5 MG TAB PO SCH (09:18)
[2024-05-15] MEDS: citaLOPram 20 MG TABLET PO SCH (09:18)
[2024-05-15] MEDS: LISINOPRIL 20 MG TABLET PO SCH (09:18)
[2024-05-15] MEDS: INSULIN GLARgine 100 UNITS/ML 10 ML VIAL SQ SCH (09:30)
[2024-05-15 12:00] VITALS: BP 166/69; PULSE 67; RESP 20; TEMP 97.6
--- NOTE | 2024-05-15 13:02 | PN ---
INFECTIOUS DISEASE PROGRESS NOTE Date of Service: May 15, 2024 SUBJECTIVE: This is a 63-year-old female patient who presented to the hospital with chief complaint of chest pain and shortness of breath. On admission patient's troponin level was 89 and the BNP was 845. A chest x-ray showed right pleural effusion. Animal Cop has been consulted. Patient was seen and examined at bedside in room 412. Patient is awake, alert and oriented x3. Patient was evaluated by Physical therapy this morning and tolerated well while using the walker. The final urine culture results came back positive for Klebsiella pneumoniae. Canchola catheter patent and draining. We will continue on Merrem venom IV. Patient remains afebrile, temperature is 97.5 . Magnesium level of 1.5 being replaced. We will continue to monitor patient's status. PHYSICAL EXAM EYES: Anicteric. Pupils equal and reactive. HENT: No oral thrush seen, moist Oral mucosa. NECK: Supple, no JVD or thyromegaly. LUNGS: Good air entry. No rales, no rhonchi. CARDIOVASCULAR: S1, S2 regular. No murmur heard. ABDOMEN: Soft, bowel sounds present, no organomegaly. Tenderness on the right side. CENTRAL NERVOUS SYSTEM: Awake, alert, oriented x 3. SKIN: No rashes, no swelling. LYMPHATICS: No peripheral lymphadenopathy MUSCULOSKELETAL: No joint swelling, erythema or tenderness. EXTREMITIES: No cyanosis or clubbing BACK: No deformity, no pressure ulcer. GENITOURINARY: No dysuria or hematuria. Canchola catheter. Vital Sign (Last 12 Hours) 05/15/24 05/15/24 05/15/24 03:31 08:00 12:00 Temp 97.9 98.2 97.5 Pulse 77 72 67 Resp 21 16 20 B/P (MAP) 148/76 180/73 166/69 Pulse Ox 92 91 O2 Delivery Room Air Room Air Nasal Cannula O2 Flow Rate 3.0 Intake & Output (last 24hrs) 05/14/24 05/14/24 05/15/24 15:00 23:00 07:00 Intake Total 100.0 ml Output Total 1900 ml 1300 ml Balance -1900 ml -1200.0 ml LABS: Laboratory: Test 05/15/24 11:08 05/15/24 04:41 05/14/24 18:57 05/14/24 16:09 Range/Units Whole Blood Glucose 154 H 70-110 MG/DL White Blood Count 6.6 4.8-10.8 K/uL Red Blood Count 3.52 L 4.00-5.50 MIL/uL Hemoglobin 8.6 L 12.0-16.0 g/dL Hematocrit 29.2 L 36-48 % Mean Corpuscular Volume 83.0 79-99 fL Mean Corpuscular Hemoglobin 24.4 L 27.0-33.0 pg Mean Corpuscular Hemoglobin Concent 29.5 L 32.0-36.0 g/dL Red Cell Distribution Width 21.1 H 11.0-15.5 % Platelet Count 140 # 130-400 K/uL Mean Platelet Volume 7.5-10.5 fL Immature Granulocyte % (Auto) 0.3 0-1 % Neutrophils (%) (Auto) 78.1 H 40.0-77.0 % Lymphocytes (%) (Auto) 9.9 L 21.0-51.0 % Monocytes (%) (Auto) 6.7 3.0-13.0 % Eosinophils (%) (Auto) 4.1 0.0-8.0 % Basophils (%) (Auto) 0.9 0.0-5.0 % Neutrophils # (Auto) 5.2 1.8-7.7 K/uL Lymphocytes # (Auto) 0.7 L 1.0-4.8 K/uL Monocytes # (Auto) 0.4 0.1-1.0 K/uL Eosinophils # (Auto) 0.27 0.00-0.70 K/uL Basophils # (Auto) 0.06 0.00-0.20 K/uL Absolute Immature Granulocyte (auto 0.02 0-1 K/uL Nucleated Red Blood Cells 0.0 0.0-0.19 % Sodium Level 139 136-145 mmol/L Potassium Level 3.6 3.5-5.1 mmol/L Chloride Level 103 101-111 mmol/L Carbon Dioxide Level 30 21-32 mmol/L Blood Urea Nitrogen 26 H 7-18 mg/dL Creatinine 1.5 H 0.5-1.0 mg/dL Glomerular Filtration Rate Calc 38 >90 mL/min Random Glucose 136 #H 70-105 mg/dL Total Calcium 8.1 L 8.5-10.1 mg/dL Magnesium Level 1.50 L 1.80-2.40 mg/dL Troponin I High Sensitivity 92 *H 4-50 ng/L Bedside Glucose Comment Notified Nurse Test 05/14/24 05:04 Range/Units Hemoglobin A1c 6.0 4.0-6.0 % Estimated Average Glucose (eAG) 126 70-126 mg/dL DIAGNOSTICS PATIENT: TAYLOR WILD ACCT: [id number] LOC: [facility] U: [id number] AGE/SX: 63/F ROOM: [facility] RE05/13/[address]: VALENTINE HAND MD : 1960 BED: 1 DIS: STATUS: ADM IN TLOC: ------- ----- SPEC: [id number] KORINA: 05/13/24-120 STATUS: COMP REQ: [id number] RECD: 05/14/[address]: YARA BECKFORD NP SOURCE: URINE CATH ENTR: 05/14/24 [facility] DR: TARA MAIN MD SPDC: CATHERIZED MAGALY KESSLER MD ORDERED: AERO ID & SENS Procedure Result Domenic Date-Time AEROBIC ID & SENSITIVITIES Final 05/15/24-0708 [facility] COLONY DESCRIPTION: DAY 1: COLONY COUNT: >100,000 CFU/ML GRAM NEGATIVE RODS IDENTIFICATION AND SENSITIVITY TO FOLLOW KLEBSIELLA PNEUMONIAE K PNEUMO M.I.C. RX --------- ---- AZTREONAM <=4 S CEFAZOLIN 4 I CEFTAZIDIME/AVIBACTAM <=8 S CEFTRIAXONE <=1 S GENTAMICIN <=2 S LEVOFLOXACIN <=0.5 S NITROFURANTOIN >64 R MEROPENEM <=1 S PIPERACILLIN/TAZOBACTAM <=8 S TRIMETHOPRIM/SUFLAMETHOXAZOLE <=2/38 S ASSESSMENT: Possible congestive heart failure. Right pleural effusion. Urinary tract infection with Klebsiella pneumoniae. Diabetes mellitus. Anemia. Morbid obesity. Debility. PLAN: Continue meropenem. Pending cardiology evaluation by Dr. Walker. Continue diuretics. Troponin were trended. Glucometer checks a.c./hs and cover with insulin per sliding scale protocol. Continue Physical therapy. We will monitor electrolytes. This case was reviewed and discussed with my supervising physician and the above assessment and plan was formulated and agreed upon. ATTESTATION BY PHYSICIAN I have seen and examined the patient. I reviewed the documentation, medical decision making, and treatment plan as noted by the mid-level provider above. I agree with the findings and plan of care. VALENTINE HAND MD, MIRTA L [facility] May 15, 2024 13:02
[2024-05-15 16:00] VITALS: BP 150/82; PULSE 67; RESP 18; TEMP 97.2
[2024-05-15 20:00] VITALS: BP 164/59; PULSE 77; RESP 20; TEMP 97.6; O2SAT 92
[2024-05-15] MEDS: GABAPENTIN 300 MG CAPSULE PO SCH (20:38)
[2024-05-15] MEDS: metoPROLOL tartRATE 25 MG TAB PO SCH (20:42)
--- NOTE | 2024-05-15 20:56 | CONS ---
CARDIOLOGY CONSULT Reason for consult: chf HPI: A 63-year-old female with morbid obesity, hypertension, diabetes mellitus, recurrent UTI, who was brought to the emergency rfor SOB. The patient was found with increasing chest pain and shortness of breath by a sister and was brought to the emergency room. Chest pain is localized to the retrosternal area with no radiation. We have been consult for concern of chf on admission bnp 800 and troponin of 93. during my visit she denies cp or sob. pmhx: as mentioned above social history no smoking or tobacco use surgical history noncontributory ros General: No malaise or fever. Neurological: No fainting episodes or seizures. HEENT: No nasal congestion or nasal secretion. Cardiac: + chest pain or palpitations + sob. Gastrointestinal: No vomiting or diarrhea. Skin: No rashes or lesions. Hematological: No bruises or bleeding. Musculoskeletal: No joint pains or arthralgias. Psychiatric: No depression or panic attacks. Patient History: Cardiovascular disease MOTHER, , Age: 68, Cause: Heart attack FATHER, , Age: 58, Cause: Cardiac arrest Diabetes mellitus MOTHER, , Age: 68, Cause: Heart attack Hypertension MOTHER, , Age: 68, Cause: Heart attack FATHER, , Age: 58, Cause: Cardiac arrest Vitals/Labs PE: EYES: Anicteric. Pupils equal and reactive. HENT: No oral thrush seen, moist Oral mucosa. NECK: Supple, no JVD or thyromegaly. LUNGS: Good air entry. No rales, no rhonchi. CARDIOVASCULAR: S1, S2 regular. No murmur heard. ABDOMEN: Soft, bowel sounds present, no organomegaly. CENTRAL NERVOUS SYSTEM: Awake, alert, oriented x 3. SKIN: No rashes, no swelling. LYMPHATICS: No peripheral lymphadenopathy MUSCULOSKELETAL: No joint swelling, erythema or tenderness. EXTREMITIES: No cyanosis or clubbing BACK: No deformity, no pressure ulcer. GENITOURINARY: No dysuria or hematuria. Vital Signs Date Time Temp Pulse Resp B/P (MAP) Pulse Ox O2 Delivery O2 Flow Rate FiO2 05/15/24 16:00 97.2 67 18 150/82 92 Room Air 05/15/24 12:00 3.0 05/15/24 08:00 21 Laboratory Tests 05/15/24 04:41 Allergies: Coded Allergies: No Known Drug Allergies (Unverified Allergy, Unknown, 05/31/22) Medications Current Medications Furosemide 80 mg ONCE ONCE IVP Last administered on 05/13/24at 12:11; Start 05/13/24 at 12:00; Stop 05/13/24 at 12:01; Status DC Ceftriaxone Sodium 1 gm ONCE ONCE IVPB Last administered on 05/13/24at 13:48; Start 05/13/24 at 13:00; Stop 05/13/24 at 13:01; Status DC Enoxaparin Sodium 40 mg DAILY SQ Last administered on 05/15/24at 09:19; Start 05/14/24 at 09:00; Stop 06/13/24 at 08:59 Morphine Sulfate 2 mg Q6H PRN IVP; Start 05/13/24 at 14:30; Stop 05/20/24 at 14:29 Ondansetron HCl 4 mg Q6H PRN IVP; Start 05/13/24 at 14:30; Stop 06/12/24 at 14:29 Acetaminophen 650 mg Q6H PRN PO; Start 05/13/24 at 14:30; Stop 06/12/24 at 14:29 Acetaminophen 650 mg Q4H PRN PO; Start 05/13/24 at 14:30; Stop 06/12/24 at 14:29 Furosemide 40 mg DAILY IV Last administered on 05/15/24at 09:18; Start 05/14/24 at 09:00; Stop 06/13/24 at 08:59 Dextrose 50 ml AD PRN IV; Start 05/13/24 at 14:30; Stop 06/12/24 at 14:29 Glucagon 1 mg AD PRN IM; Start 05/13/24 at 14:30; Stop 06/12/24 at 14:29 Insulin Human Regular INSULIN SLIDING SCAL... ACHS SQ; Start 05/13/24 at 16:30; Stop 06/12/24 at 16:29 Meropenem 1 gm/ Sodium Chloride 100 ml @ 33.333 mls/ hr Q8H IVPB; Start 05/13/24 at 15:30; Stop 05/13/24 at 15:25; Status DC Meropenem 1 gm Q12H IVPB Last administered on 05/15/24at 16:17; Start 05/13/24 at 15:30; Stop 05/23/24 at 15:29 Hydralazine HCl 10 mg Q8H PRN IV Last administered on 05/15/24at 11:55; Start 05/13/24 at 18:00; Stop 06/12/24 at 17:59 Amlodipine Besylate 5 mg DAILY PO Last administered on 05/15/24at 09:18; Start 05/15/24 at 09:00; Stop 06/14/24 at 08:59 Citalopram Hydrobromide 20 mg DAILY PO Last administered on 05/15/24at 09:18; Start 05/15/24 at 09:00; Stop 06/14/24 at 08:59 Gabapentin 300 mg TID PO Last administered on 05/15/24at 16:17; Start 05/14/24 at 21:00; Stop 05/15/24 at 18:41; Status DC Lisinopril 20 mg DAILY PO Last administered on 05/15/24at 09:18; Start 05/15/24 at 09:00; Stop 06/14/24 at 08:59 Sertraline HCl 50 mg HS PO Last administered on 05/14/24at 20:38; Start 05/14/24 at 21:00; Stop 06/13/24 at 20:59 Insulin Glargine 30 units DAILYBKFST SQ Last administered on 05/15/24at 09:30; Start 05/15/24 at 08:00; Stop 06/14/24 at 07:59 Meloxicam 15 mg DAILY PO Last administered on 05/15/24at 09:17; Start 05/15/24 at 09:00; Stop 06/14/24 at 08:59 Pantoprazole Sodium 40 mg ACBKFST PO Last administered on 05/15/24at 06:06; Start 05/15/24 at 07:30; Stop 06/14/24 at 07:29 Atorvastatin Calcium 10 mg HS PO Last administered on 05/14/24at 20:38; Start 05/14/24 at 21:00; Stop 06/13/24 at 20:59 Pharmacy Profile Note 1 each [place] [facility] [place] Start 05/14/24 at 23:30; Stop 05/15/24 at 18:40; Status DC Potassium Chloride 100 ml @ 100 mls/hr AD PRN IV; Start 05/15/24 at 08:30; Stop 06/14/24 at 08:29 Potassium Chloride 20 meq AD PRN PO; Start 05/15/24 at 08:30; Stop 06/14/24 at 08:29 Potassium Chloride 20 meq AD PRN PO Last administered on 05/15/24at 12:45; Start 05/15/24 at 08:30; Stop 06/14/24 at 08:29 Magnesium Sulfate 50 ml @ 0 mls/hr PROTOCOL PRN IV; Start 05/15/24 at 08:30; Stop 06/14/24 at 08:29 Gabapentin 300 mg TID PO; Start 05/15/24 at 21:00; Stop 06/13/24 at 20:59 Aspirin 81 mg DAILY PO; Start 05/16/24 at 09:00; Stop 06/15/24 at 08:59; Status UNV Metoprolol Tartrate 12.5 mg BID PO; Start 05/15/24 at 21:00; Stop 06/14/24 at 20:59; Status UNV ASSESSMENT: 1, suspect low grade chf 2. mildly elevated troponin 3. hx of htn, hld, dmii PLAN: From a cardiology standpoint we will do echo to assess pt ef i will also plan for cardiac stress test in the morning to r/o cadx will start pt on asa and beta blockers further recommendations will be based on how the pt does and the results above REYNALDO REINA May 15, 2024 20:56
[2024-05-16] VITALS: BP 144/59; PULSE 78; RESP 20; TEMP 97.7
[2024-05-16 04:00] VITALS: BP 153/78; PULSE 61; RESP 20; TEMP 98
[2024-05-16] MEDS: acetaMINOPHEN 325 MG TAB PO PRN (04:49)
[2024-05-16 06:14] LABS: CREATININE 1.5 mg/dL (0.5-1.0); POTASSIUM 4.5 mmol/L (3.5-5.1)
[2024-05-16 06:49] LABS: BASOPHILS # (AUTO) 0.04 K/uL (0.00-0.20); BASOPHILS % (AUTO) 0.6 % (0.0-5.0); EOSINOPHILS # (AUTO) 0.39 K/uL (0.00-0.70); EOSINOPHILS % (AUTO) 6.1 % (0.0-8.0); HEMATOCRIT 26.1 % (36-48); IMMATURE GRANULOCYTE ABSOLUTE 0.02 K/uL (0-1); LYMPHOCYTES # (AUTO) 0.6 K/uL (1.0-4.8); LYMPHOCYTES % (AUTO) 8.9 % (21.0-51.0); MEAN CORPUSCULAR HEMOGLOBIN 24.4 pg (27.0-33.0); MEAN CORPUSCULAR HGB CONC 29.9 g/dL (32.0-36.0); MEAN CORPUSCULAR VOLUME 81.6 fL (79-99); MONOCYTES # (AUTO) 0.4 K/uL (0.1-1.0); MONOCYTES % (AUTO) 6.4 % (3.0-13.0); NEUTROPHILS % (AUTO) 77.7 % (40.0-77.0); PLATELET COUNT (AUTO) 228 K/uL (130-400); WHITE BLOOD COUNT (AUTO) 6.4 K/uL (4.8-10.8)
[2024-05-16 08:00] VITALS: BP 149/64; PULSE 64; RESP 16; TEMP 97.7
[2024-05-16] MEDS: ASPIRIN 81 MG EC TAB PO SCH (08:53)
[2024-05-16 12:00] VITALS: BP 140/70; PULSE 61; RESP 18; TEMP 98.4
--- NOTE | 2024-05-16 15:32 | PN ---
INFECTIOUS DISEASE PROGRESS NOTE Date of Service: May 16, 2024 SUBJECTIVE: This is a 63-year-old female patient who presented to the hospital with chief complaint of chest pain and shortness of breath. On admission patient's troponin level was 89 and the BNP was 845. A chest x-ray showed right pleural effusion. Pastry Baker has been consulted. Patient was seen and examined at bedside in room 412. Patient is awake, alert and oriented x3. Patient is sitting up on the bedside chair. Patient has right side abdominal wall dependent edema. We will continue to monitor. Patient is afebrile, temperature is 98.4. We will remove Canchola catheter today. Will continue on Meropenem IV for UTI. We will continue to monitor patient's status. PHYSICAL EXAM EYES: Anicteric. Pupils equal and reactive. HENT: No oral thrush seen, moist Oral mucosa. NECK: Supple, no JVD or thyromegaly. LUNGS: Good air entry. No rales, no rhonchi. CARDIOVASCULAR: S1, S2 regular. No murmur heard. ABDOMEN: Soft, bowel sounds present, no organomegaly. Dependent edema to the right side of the abdomen. CENTRAL NERVOUS SYSTEM: Awake, alert, oriented x 3. SKIN: No rashes, no swelling. LYMPHATICS: No peripheral lymphadenopathy MUSCULOSKELETAL: No joint swelling, erythema or tenderness. EXTREMITIES: No cyanosis or clubbing. BACK: No deformity, no pressure ulcer. GENITOURINARY: No dysuria or hematuria. Canchola catheter will be removed today. Vital Sign (Last 12 Hours) 05/16/24 05/16/24 05/16/24 04:00 08:00 12:00 Temp 98.1 97.7 98.4 Pulse 61 64 61 Resp 20 16 18 B/P (MAP) 153/78 149/64 140/70 Pulse Ox 94 96 96 O2 Delivery Room Air Room Air Room Air Intake & Output (last 24hrs) 05/15/24 05/15/24 05/16/24 15:00 23:00 07:00 Intake Total 200 ml Output Total 800 ml 250 ml Balance 200 ml -800 ml -250 ml LABS: Laboratory: Test 05/16/24 11:25 05/16/24 06:34 05/16/24 05:50 05/14/24 18:57 Range/Units Whole Blood Glucose 104 70-110 MG/DL Bedside Glucose Comment Notified Nurse White Blood Count 6.4 4.8-10.8 K/uL Red Blood Count 3.20 L 4.00-5.50 MIL/uL Hemoglobin 7.8 L 12.0-16.0 g/dL Hematocrit 26.1 L 36-48 % Mean Corpuscular Volume 81.6 79-99 fL Mean Corpuscular Hemoglobin 24.4 L 27.0-33.0 pg Mean Corpuscular Hemoglobin Concent 29.9 L 32.0-36.0 g/dL Red Cell Distribution Width 21.0 H 11.0-15.5 % Platelet Count 228 # 130-400 K/uL Mean Platelet Volume 10.5 7.5-10.5 fL Immature Granulocyte % (Auto) 0.3 0-1 % Neutrophils (%) (Auto) 77.7 H 40.0-77.0 % Lymphocytes (%) (Auto) 8.9 L 21.0-51.0 % Monocytes (%) (Auto) 6.4 3.0-13.0 % Eosinophils (%) (Auto) 6.1 0.0-8.0 % Basophils (%) (Auto) 0.6 0.0-5.0 % Neutrophils # (Auto) 5.0 1.8-7.7 K/uL Lymphocytes # (Auto) 0.6 L 1.0-4.8 K/uL Monocytes # (Auto) 0.4 0.1-1.0 K/uL Eosinophils # (Auto) 0.39 0.00-0.70 K/uL Basophils # (Auto) 0.04 0.00-0.20 K/uL Absolute Immature Granulocyte (auto 0.02 0-1 K/uL Nucleated Red Blood Cells 0.0 0.0-0.19 % Sodium Level 142 136-145 mmol/L Potassium Level 4.5 3.5-5.1 mmol/L Chloride Level 106 101-111 mmol/L Carbon Dioxide Level 29 21-32 mmol/L Blood Urea Nitrogen 29 H 7-18 mg/dL Creatinine 1.5 H 0.5-1.0 mg/dL Glomerular Filtration Rate Calc 38 >90 mL/min Random Glucose 86 70-105 mg/dL Total Calcium 8.5 8.5-10.1 mg/dL Magnesium Level 2.00 1.80-2.40 mg/dL Troponin I High Sensitivity 92 *H 4-50 ng/L ASSESSMENT: Possible congestive heart failure. Right pleural effusion. Urinary tract infection with Klebsiella pneumoniae. Diabetes mellitus. Anemia. Abdominal wall Dependent edema. Morbid obesity. Debility. PLAN: Continue meropenem. Remove Canchola catheter. Cardiology has evaluated patient and pending a 2D echo and stress test. Continue diuretics. Troponin were trended. Glucometer checks a.c./hs and cover with insulin per sliding scale protocol. Continue with Physical therapy. We will monitor electrolytes. This case was reviewed and discussed with my supervising physician and the above assessment and plan was formulated and agreed upon. ATTESTATION BY PHYSICIAN I have seen and examined the patient. I reviewed the documentation, medical decision making, and treatment plan as noted by the mid-level provider above. I agree with the findings and plan of care. VALENTINE HAND MD, MIRTA L [facility] May 16, 2024 15:32
--- NOTE | 2024-05-16 15:50 | PN ---
PROBLEM LIST: * Mild CHF, systolic versus diastolic. * Fall secondary to trauma. * History of hypertension and hyperlipidemia. * Progressive worsening anemia of unknown origin. SUBJECTIVE: Clinically, the patient is looking good. Denies any complaint of chest pain or shortness of breath. She tells me she still has a little bit of swelling in her ankles. OBJECTIVE: VITAL SIGNS: Heart rate is 70, blood pressure is 130/70. HEENT: Normocephalic, atraumatic. Pupils equal, react to light. NECK: Supple. No thyromegaly, no carotid bruit, no neck masses. LUNGS: Mostly clear to percussion and auscultation. CARDIOVASCULAR: Peripheral pulses are diminished. No groin bruit, no abdominal bruit, no carotid bruit, no JVD. S1, S2 is heard. No S3, no S4. ABDOMEN: Benign. [employer] ARCHITECT: Nonfocal exam. EXTREMITIES: Trace pitting edema is present. RECOMMENDATIONS: * I will stop the aspirin and Lovenox as she is dropping the hemoglobin. * Lexiscan is awaited at this time. I will hold off on any invasive CAD evaluation. * A 2D echo is also pending. Further recommendations will be based on results of the above. TID: [id number] RECEIPT: [id number]
[2024-05-16 16:00] VITALS: BP 119/55; PULSE 62; RESP 18; TEMP 97.6
--- NOTE | 2024-05-16 18:00 | NUR ---
CM NOTE: POC CM SPOKE TO PT DISCUSSED MD RECOMMENDATIONS FOR SHORT TERM PLACEMENT AT SNF, PT DECLINED AT THIS TIME, VERBALIZED SHE PREFERS TO GO BACK HOME WITH HER SISTER, HER SISTER WILL BE ABLE TO ASSIST HER ONCE READY TO DC. DR HAND UDPAMANDA. PRIMARY NURSE BELEN MADE AWARE. DCP HOME ONCE STABLE. CM TO CONTINUE TO FOLLOW UP. Addendum: 05/16/24 at 1802 by LIANET ROBLES LVN CM Amended: Links added.
[2024-05-16 20:00] VITALS: BP 140/59; PULSE 66; RESP 20; TEMP 97.9; O2SAT 94
[2024-05-17] VITALS (7 sets, daily range): BP systolic 139–170; BP diastolic 50–73; PULSE 57–69; RESP 16–20; TEMP 97.4–98; O2SAT 92–98
[2024-05-17 04:56] LABS: BASOPHILS # (AUTO) 0.05 K/uL (0.00-0.20); BASOPHILS % (AUTO) 0.8 % (0.0-5.0); EOSINOPHILS # (AUTO) 0.49 K/uL (0.00-0.70); EOSINOPHILS % (AUTO) 7.9 % (0.0-8.0); IMMATURE GRANULOCYTE ABSOLUTE 0.01 K/uL (0-1); LYMPHOCYTES # (AUTO) 0.8 K/uL (1.0-4.8); LYMPHOCYTES % (AUTO) 12.1 % (21.0-51.0); MEAN CORPUSCULAR HEMOGLOBIN 24.3 pg (27.0-33.0); MEAN CORPUSCULAR HGB CONC 28.9 g/dL (32.0-36.0); MEAN CORPUSCULAR VOLUME 83.8 fL (79-99); MONOCYTES # (AUTO) 0.5 K/uL (0.1-1.0); MONOCYTES % (AUTO) 7.9 % (3.0-13.0); NEUTROPHILS # (AUTO) 4.4 K/uL (1.8-7.7); NEUTROPHILS % (AUTO) 71.1 % (40.0-77.0); PLATELET COUNT (AUTO) 201 K/uL (130-400); RED BLOOD CELL COUNT(AUTO) 3.34 MIL/uL (4.00-5.50); WHITE BLOOD COUNT (AUTO) 6.2 K/uL (4.8-10.8)
[2024-05-17 05:08] LABS: CREATININE 1.5 mg/dL (0.5-1.0); POTASSIUM 4.1 mmol/L (3.5-5.1)
--- NOTE | 2024-05-17 05:23 | NUR ---
Pt.'s glucose results of 32MG/DL @ this time, pt. asymptomatic, AAOX4, states feeling fine; in no distress.
[2024-05-17] MEDS: DEXTROSE 50%-WATER 50 ML DISP.SYRIN IV PRN (05:30)
--- NOTE | 2024-05-17 05:30 | NUR ---
D50W administered I.V. @ this time per Mayra, pt. tolerated well; will re-check glucose in 15 minutes.
--- NOTE | 2024-05-17 08:44 | NUR ---
LANTUS Lantus insulin held for hypoglycemia
[2024-05-17] MEDS: furoSEMIDE 40 MG TABLET PO SCH (09:00)
--- NOTE | 2024-05-17 09:06 | HMCSR ---
APPROVED REPORT EXAM: Two-dimensional and M-mode echocardiogram with Doppler and color Doppler. INDICATION ICD: Heart Failure 2D Dimensions RVDd4.2 cmLVEF(%)65.6 (>50%)LVED Vol(simp.)80.0 mL IVSd1.0 (0.7-1.1cm)FS(%)36 %LVES Vol(simp.)34.0 mL LVDd4.2 (3.8-5.6cm)LA (2D)4.2 (1.6-4.0cm)LVEF(%, simp.)58 % PWd1.2 (0.7-1.1cm)Ao Root(2D)2.8 (2.0-3.7cm)LA ESV INDEX (4CH)30.70 mL/m2 IVSs1.4 cmLVOT diam2.0 (1.8-2.4cm)LA ESV INDEX (2CH)27.20 mL/m2 LVDs2.7 (2.5-4.0cm)IVC diam1.9 cmLA ESV INDEX (BP)31.50 mL/m2 PWs1.5 cm M-Mode Dimensions EPSS1.0 cm LA (MM)3.8 (1.6-4.0cm) Ao Root(MM)2.5 (2.0-3.7cm) Aortic Valve AoV VTI0.3 mAo Mean GR3.0 mmHgLVOT VTI0.20 m JUDAH (VMAX)2.1 cm2AVA (VTI) 2.1 cm2 Mitral Valve MV E Srvf486.7 cm/sDECEL Pmky649 ms MV A Vmax52.8 cm/sP 1/2 T67 ms E/A ratio1.9MVA (PHT)3.3 cm2 TDI E/E' Penysr03.9E/E' Xcnckxm55.5 Medial E' Peak V6.40 cm/sLateral E' Peak V5.50 cm/s Tricuspid Valve TR Vmax3.0 m/s TR Peak GR37.0 mmHg Left Ventricle Left ventricular cavity size is normal. There is normal left ventricular wall thickness. LVEF is 55-6 0%. Stage II diastolic dysfunction. Right Ventricle The right ventricle is normal size. The right ventricular systolic function is normal. Atria The left atrium size is normal. The right atrium is moderately dilated. Aortic Valve The aortic valve is trileaflet, mildly thickened but opens well. No aortic regurgitation is present. There is no aortic valvular stenosis. Mitral Valve The mitral valve is normal in structure and function. Posterior leaflet is mildly calcified. There is no mitral valve regurgitation noted. There is no mitral valve stenosis. Tricuspid Valve The tricuspid valve leaflets appear normal. There is moderate tricuspid valve regurgitation noted. Pulmonic Valve The pulmonary valve is normal in structure and function. There is no pulmonic valvular regurgitation. Great Vessels The aortic root is normal in size. IVC is normal in size and collapses <50% with inspiration. Pericardium No pericardial effusion. Other Information Quality : FairRhythm : NSR Technically limited study due to body habitus. Conclusion LVEF is 55-60%. Stage II diastolic dysfunction. The aortic valve is trileaflet, mildly thickened but opens well. The right atrium is moderately dilated. Posterior mitral valve leaflet is mildly calcified. There is moderate tricuspid valve regurgitation.
[2024-05-17] MEDS ORDERED: REGADENOSON 0.4 MG/5 ML PF SYG IVP ONE (13:08)
--- NOTE | 2024-05-17 21:46 | PN ---
INFECTIOUS DISEASE FOLLOWUP NOTE DATE OF SERVICE: 05/17/2024 SUBJECTIVE: The patient is seen and examined at bedside today. The patient has no fever, no chills. No nausea or vomiting. No chest pain. No palpitation or orthopnea. ____, awaiting official report. OBJECTIVE: VITAL SIGNS: Temperature today 97.1. EYES: No icterus. Pupils equal and reactive. HENT: No oral thrush seen. Moist oral mucosa. NECK: Supple. No JVD or thyromegaly. LUNGS: Good air entry. No rales. No rhonchi. CARDIOVASCULAR SYSTEM: S1, S2 regular. No murmur heard. ABDOMEN: Obese, soft, nontender. Bowel sounds present. CENTRAL NERVOUS SYSTEM: Awake, alert, oriented x 3. No focal deficits. SKIN: No rashes. No itchiness. LYMPHATIC: No peripheral lymphadenopathy. BACK: No deformity, no pressure ulcer. HEMATOLOGIC: No bleeding or petechial lesion seen. MUSCULOSKELETAL: No joint swelling, erythema or tenderness. ASSESSMENT: A 63-year-old female with multiple problems include: * Acute on chronic diastolic heart failure. * Urinary tract infection. * Diabetes mellitus. * Obesity. * Anemia. * Debility. PLAN: * Continue Lasix. * Continue antibiotic. * Continue antidiabetic. * Continue antihypertensive. * Continue physical therapy. * Monitor electrolytes. * The patient will follow up closely. TID: [id number] RECEIPT: [id number]
[2024-05-18] VITALS (7 sets, daily range): BP systolic 139–152; BP diastolic 55–82; PULSE 60–70; RESP 18–20; TEMP 97.9–98.5; O2SAT 92–96
[2024-05-18 05:59] LABS: BASOPHILS # (AUTO) 0.05 K/uL (0.00-0.20); BASOPHILS % (AUTO) 0.8 % (0.0-5.0); EOSINOPHILS % (AUTO) 7.7 % (0.0-8.0); HEMATOCRIT 27.2 % (36-48); IMMATURE GRANULOCYTE ABSOLUTE 0.02 K/uL (0-1); LYMPHOCYTES # (AUTO) 0.6 K/uL (1.0-4.8); LYMPHOCYTES % (AUTO) 9.7 % (21.0-51.0); MEAN CORPUSCULAR HEMOGLOBIN 24.6 pg (27.0-33.0); MEAN CORPUSCULAR HGB CONC 30.1 g/dL (32.0-36.0); MEAN CORPUSCULAR VOLUME 81.4 fL (79-99); MONOCYTES # (AUTO) 0.4 K/uL (0.1-1.0); MONOCYTES % (AUTO) 6.3 % (3.0-13.0); NEUTROPHILS # (AUTO) 4.9 K/uL (1.8-7.7); NEUTROPHILS % (AUTO) 75.2 % (40.0-77.0); PLATELET COUNT (AUTO) 180 K/uL (130-400); RED BLOOD CELL COUNT(AUTO) 3.34 MIL/uL (4.00-5.50); RED CELL DISTRIBUTION WIDTH 21.2 % (11.0-15.5); WHITE BLOOD COUNT (AUTO) 6.5 K/uL (4.8-10.8)
[2024-05-18 06:18] LABS: CREATININE 1.7 mg/dL (0.5-1.0); MAGNESIUM 1.8 mg/dL (1.80-2.40)
--- NOTE | 2024-05-18 14:38 | CONS ---
CONSULTATION NOTE Date of Service: May 18, 2024 Reason for Consultation: Abnormal Renal Function HISTORY OF PRESENT ILLNESS: 63 y/ with a PMH of anemia Diabetes mellitus, Morbid obesity, Hypertension, Enterocutaneous fistula and reoccurring UTIs. Patient has some history of ch ronic kidney disease. Last known renal function [id number] GFR 38, Cr 1.5 and BUN 28. Patient presented to the ED due to episodes of SOB. Being assessed for possible CHF and being treated for UTI. Renal Function slight decline from baseline. Examined at bedside no new concerns. Denies fever chills and pain. Urine output over 1200cc in the last 24hours. REVIEW OF SYSTEMS CONSTITUTIONAL: Denies fever, chills, or fatigue. HEAD/FACE: No signs of trauma. EENT: Denies eye pain, blurred vision, double vision, or light sensitivity. RESPIRATORY: Denies shortness of breath, cough, wheezing CARDIOVASCULAR: Denies chest pain, palpitation, syncope GASTROINTESTINAL/ABDOMINAL: Denies abdominal pain, constipation, diarrhea, nausea or vomiting GENITOURINARY: Denies dysuria or hematuria. MUSCULOSKELETAL: Denies joint pain, tenderness, or trauma. INTEGUMENTARY: Denies rash or itchiness NEUROLOGICAL/PSYCH: Denies anxiety, depression, heat or cold intolerance. PAST MEDICAL HISTORY: Refer to [facility] Coded Allergies: No Known Drug Allergies (Unverified Allergy, Unknown, 05/31/22) PHYSICAL EXAM EYES: Anicteric. Pupils equal and reactive. HENT: No oral thrush seen, moist Oral mucosa NECK: Supple, no JVD or thyromegaly. LUNGS: Good air entry. No rales, no rhonchi. CARDIOVASCULAR: S1, S2 regular. No murmur heard. ABDOMEN: Soft, non tender, bowel sounds present, no organomegaly CENTRAL NERVOUS SYSTEM: Awake, alert, oriented x 3. No focal deficits. SKIN: No rashes, no swelling. LYMPHATICS: No peripheral lymphadenopathy MUSCULOSKELETAL: No joint swelling, erythema or tenderness. EXTREMITIES: No cyanosis or clubbing BACK: No deformity, no pressure ulcer. GENITOURINARY: No dysuria or hematuria Vital Sign (Last 24 Hours) 05/18/24 05/18/24 12:00 12:20 Temp 97.9 Pulse 70 Resp 19 B/P (MAP) 152/58 Pulse Ox 95 O2 Delivery Room Air O2 Flow Rate 0 FiO2 21 LABS: Laboratory: Test 05/18/24 11:27 05/18/24 05:39 05/17/24 05:23 Range/Units Whole Blood Glucose 173 H 70-110 MG/DL White Blood Count 6.5 4.8-10.8 K/uL Red Blood Count 3.34 L 4.00-5.50 MIL/uL Hemoglobin 8.2 L 12.0-16.0 g/dL Hematocrit 27.2 L 36-48 % Mean Corpuscular Volume 81.4 79-99 fL Mean Corpuscular Hemoglobin 24.6 L 27.0-33.0 pg Mean Corpuscular Hemoglobin Concent 30.1 L 32.0-36.0 g/dL Red Cell Distribution Width 21.2 H 11.0-15.5 % Platelet Count 180 130-400 K/uL Mean Platelet Volume 10.1 7.5-10.5 fL Immature Granulocyte % (Auto) 0.3 0-1 % Neutrophils (%) (Auto) 75.2 40.0-77.0 % Lymphocytes (%) (Auto) 9.7 L 21.0-51.0 % Monocytes (%) (Auto) 6.3 3.0-13.0 % Eosinophils (%) (Auto) 7.7 0.0-8.0 % Basophils (%) (Auto) 0.8 0.0-5.0 % Neutrophils # (Auto) 4.9 1.8-7.7 K/uL Lymphocytes # (Auto) 0.6 L 1.0-4.8 K/uL Monocytes # (Auto) 0.4 0.1-1.0 K/uL Eosinophils # (Auto) 0.50 0.00-0.70 K/uL Basophils # (Auto) 0.05 0.00-0.20 K/uL Absolute Immature Granulocyte (auto 0.02 0-1 K/uL Nucleated Red Blood Cells 0.0 0.0-0.19 % Sodium Level 141 136-145 mmol/L Potassium Level 4.0 3.5-5.1 mmol/L Chloride Level 105 101-111 mmol/L Carbon Dioxide Level 29 21-32 mmol/L Blood Urea Nitrogen 33 H 7-18 mg/dL Creatinine 1.7 H 0.5-1.0 mg/dL Glomerular Filtration Rate Calc 33 >90 mL/min Random Glucose 152 H 70-105 mg/dL Total Calcium 8.2 L 8.5-10.1 mg/dL Magnesium Level 1.80 1.80-2.40 mg/dL Bedside Glucose Comment Protocol Initiated DIAGNOSTICS / RADIOLOGY: PORTABLE CHEST RADIOGRAPH INDICATION: SHORTNESS A BREATH COMPARISON: 11/09/2023 FINDINGS: Image is somewhat underexposed, but the radiologic examination is still believed to be of reasonable diagnostic quality. Heart size is normal. The pulmonary vascularity and jose appear normal. Linear opacities near the right lung base without consolidation. Right costophrenic angle is blunted. No pneumothorax detected. IMPRESSION: Small right pleural effusion with subjacent passive atelectasis. ASSESSMENT: SIRENA on CKD last known renal function [id number] GFR 38, Cr 1.5 and BUN 28 Diabetes type 2 HTN Anemia PLAN: Monitor renal function Dose to renal Clearence Avoid NSAIDs and nephrotoxins Monitor Fluid intake 1.5 L QD Monitor I's and O's Monitor Electrolytes No need for DRUM PRINTER at this time Renal Diet MURIEL BROCK May 18, 2024 14:38
--- NOTE | 2024-05-18 18:11 | PN ---
INFECTIOUS DISEASE PROGRESS NOTE Date of Service: May 18, 2024 SUBJECTIVE: This is a 63-year-old female patient who presented to the hospital with chief complaint of chest pain and shortness of breath. On admission patient's troponin level was 89 and the BNP was 845. A chest x-ray showed right pleural effusion. [employer] has been consulted. Patient was seen and examined at bedside in room 412. Patient is awake, alert and oriented x3. Patient is sitting up on the bedside chair. Participating well with physical therapy. Patient is afebrile, t emperature is 97.0. Will continue on Meropenem IV for UTI. Pending Lexiscan interpretation. We will continue to monitor patient's status. PHYSICAL EXAM EYES: Anicteric. Pupils equal and reactive. HENT: No oral thrush seen, moist Oral mucosa. NECK: Supple, no JVD or thyromegaly. LUNGS: Good air entry. No rales, no rhonchi. CARDIOVASCULAR: S1, S2 regular. No murmur heard. ABDOMEN: Soft, bowel sounds present, no organomegaly. Dependent edema to the right side of the abdomen. CENTRAL NERVOUS SYSTEM: Awake, alert, oriented x 3. SKIN: No rashes, no swelling. LYMPHATICS: No peripheral lymphadenopathy MUSCULOSKELETAL: No joint swelling, erythema or tenderness. EXTREMITIES: No cyanosis or clubbing. BACK: No deformity, no pressure ulcer. GENITOURINARY: No dysuria or hematuria. [place] catheter will be removed today. Vital Sign (Last 12 Hours) 05/18/24 05/18/24 05/18/24 08:00 12:00 12:20 Temp 98.4 97.9 Pulse 66 70 Resp 20 19 B/P (MAP) 148/66 152/58 Pulse Ox 94 92 95 O2 Delivery Room Air Room Air* Room Air O2 Flow Rate 0 FiO2 21 LABS: Laboratory: Test 05/18/24 16:34 05/18/24 05:39 05/17/24 05:23 Range/Units Whole Blood Glucose 213 H 70-110 MG/DL White Blood Count 6.5 4.8-10.8 K/uL Red Blood Count 3.34 L 4.00-5.50 MIL/uL Hemoglobin 8.2 L 12.0-16.0 g/dL Hematocrit 27.2 L 36-48 % Mean Corpuscular Volume 81.4 79-99 fL Mean Corpuscular Hemoglobin 24.6 L 27.0-33.0 pg Mean Corpuscular Hemoglobin Concent 30.1 L 32.0-36.0 g/dL Red Cell Distribution Width 21.2 H 11.0-15.5 % Platelet Count 180 130-400 K/uL Mean Platelet Volume 10.1 7.5-10.5 fL Immature Granulocyte % (Auto) 0.3 0-1 % Neutrophils (%) (Auto) 75.2 40.0-77.0 % Lymphocytes (%) (Auto) 9.7 L 21.0-51.0 % Monocytes (%) (Auto) 6.3 3.0-13.0 % Eosinophils (%) (Auto) 7.7 0.0-8.0 % Basophils (%) (Auto) 0.8 0.0-5.0 % Neutrophils # (Auto) 4.9 1.8-7.7 K/uL Lymphocytes # (Auto) 0.6 L 1.0-4.8 K/uL Monocytes # (Auto) 0.4 0.1-1.0 K/uL Eosinophils # (Auto) 0.50 0.00-0.70 K/uL Basophils # (Auto) 0.05 0.00-0.20 K/uL Absolute Immature Granulocyte (auto 0.02 0-1 K/uL Nucleated Red Blood Cells 0.0 0.0-0.19 % Sodium Level 141 136-145 mmol/L Potassium Level 4.0 3.5-5.1 mmol/L Chloride Level 105 101-111 mmol/L Carbon Dioxide Level 29 21-32 mmol/L Blood Urea Nitrogen 33 H 7-18 mg/dL Creatinine 1.7 H 0.5-1.0 mg/dL Glomerular Filtration Rate Calc 33 >90 mL/min Random Glucose 152 H 70-105 mg/dL Total Calcium 8.2 L 8.5-10.1 mg/dL Magnesium Level 1.80 1.80-2.40 mg/dL Bedside Glucose Comment Protocol Initiated ASSESSMENT: Possible congestive heart failure. Right pleural effusion. Urinary tract infection with Klebsiella pneumoniae. Diabetes mellitus. Anemia. Abdominal wall Dependent edema. Morbid obesity. Debility. PLAN: Pending Lexiscan interpretation. Continue meropenem. Cardiology has evaluated patient and pending a 2D echo and stress test. Continue diuretics. Troponin were trended. Glucometer checks a.c./hs and cover with insulin per sliding scale protocol. Continue with Physical therapy. We will monitor electrolytes. This case was reviewed and discussed with my supervising physician and the above assessment and plan was formulated and agreed upon. ATTESTATION BY PHYSICIAN I have seen and examined the patient. I reviewed the documentation, medical decision making, and treatment plan as noted by the mid-level provider above. I agree with the findings and plan of care. VALENTINE HAND MD, MIRTA [facility] May 18, 2024 18:11
--- NOTE | 2024-05-18 21:59 | PN ---
HPI: pt was seen and examined today she denies cp or sob to me Vitals/Labs PE: General: awake, alert, NAD Head/Face: Normocephalic, atraumatic Eyes: PERRL, EOMI, vision at baseline ENT: oral cavity clear, TMs clear, no signs of infection Neck: Trachea midline, supple, no nuchal rigidity Cardiovascular: Tachycardia No MRGs, no JVD Respiratory: CTAB, no respiratory distress, No rales or wheezes Abdomen: Soft, non-tender, non-distended, normal bowel sounds, no guarding or rebound. Skin: Warm, dry, normal turgor, no rash MS/Extremity: Pulses equal, no cyanosis, neurovascular intact, FROM Neuro: COAx4, GCS 15, strength 5/5, CN 2-12 int Vital Signs Date Time Temp Pulse Resp B/P (MAP) Pulse Ox O2 Delivery O2 Flow Rate FiO2 05/18/24 20:07 98.2 60 18 143/55 96 Room Air 21 05/18/24 12:00 0 Laboratory Tests 05/18/24 05:39 Medications Current Medications Furosemide 80 mg ONCE ONCE IVP Last administered on 05/13/24at 12:11; Start 05/13/24 at 12:00; Stop 05/13/24 at 12:01; Status DC Ceftriaxone Sodium 1 gm ONCE ONCE IVPB Last administered on 05/13/24at 13:48; Start 05/13/24 at 13:00; Stop 05/13/24 at 13:01; Status DC Enoxaparin Sodium 40 mg DAILY SQ Last administered on 05/16/24at 08:52; Start 05/14/24 at 09:00; Stop 05/16/24 at 13:23; Status DC Morphine Sulfate 2 mg Q6H PRN IVP; Start 05/13/24 at 14:30; Stop 05/18/24 at 17:29; Status DC Ondansetron HCl 4 mg Q6H PRN IVP; Start 05/13/24 at 14:30; Stop 06/12/24 at 14:29 Acetaminophen 650 mg Q6H PRN PO Last administered on 05/17/24at 23:52; Start 05/13/24 at 14:30; Stop 06/12/24 at 14:29 Acetaminophen 650 mg Q4H PRN PO; Start 05/13/24 at 14:30; Stop 06/12/24 at 14:29 Furosemide 40 mg DAILY IV Last administered on 05/16/24at 08:53; Start 05/14/24 at 09:00; Stop 05/16/24 at 13:23; Status DC Dextrose 50 ml AD PRN IV Last administered on 05/17/24at 11:35; Start 05/13/24 at 14:30; Stop 06/12/24 at 14:29 Glucagon 1 mg AD PRN IM; Start 05/13/24 at 14:30; Stop 06/12/24 at 14:29 Insulin Human Regular INSULIN SLIDING SCAL... ACHS SQ Last administered on 05/18/24at 16:41; Start 05/13/24 at 16:30; Stop 06/12/24 at 16:29 Meropenem 1 gm/ Sodium Chloride 100 ml @ 33.333 mls/ hr Q8H IVPB; Start 05/13/24 at 15:30; Stop 05/13/24 at 15:25; Status DC Meropenem 1 gm Q12H IVPB Last administered on 05/18/24at 15:37; Start 05/13/24 at 15:30; Stop 05/23/24 at 15:29 Hydralazine HCl 10 mg Q8H PRN IV Last administered on 05/17/24at 23:42; Start 05/13/24 at 18:00; Stop 06/12/24 at 17:59 Amlodipine Besylate 5 mg DAILY PO Last administered on 05/18/24at 09:32; Start 05/15/24 at 09:00; Stop 06/14/24 at 08:59 Citalopram Hydrobromide 20 mg DAILY PO Last administered on 05/18/24at 09:33; Start 05/15/24 at 09:00; Stop 06/14/24 at 08:59 Gabapentin 300 mg TID PO Last administered on 05/15/24at 16:17; Start 05/14/24 at 21:00; Stop 05/15/24 at 18:41; Status DC Lisinopril 20 mg DAILY PO Last administered on 05/18/24at 09:34; Start 05/15/24 at 09:00; Stop 06/14/24 at 08:59 Sertraline HCl 50 mg HS PO Last administered on 05/18/24at 20:05; Start 05/14/24 at 21:00; Stop 06/13/24 at 20:59 Insulin Glargine 30 units DAILYBKFST SQ Last administered on 05/16/24at 09:05; Start 05/15/24 at 08:00; Stop 06/14/24 at 07:59 Meloxicam 15 mg DAILY PO Last administered on 05/18/24at 09:33; Start 05/15/24 at 09:00; Stop 06/14/24 at 08:59 Pantoprazole Sodium 40 mg ACBKFST PO Last administered on 05/18/24at 06:20; Start 05/15/24 at 07:30; Stop 06/14/24 at 07:29 Atorvastatin Calcium 10 mg HS PO Last administered on 05/18/24at 20:05; Start 05/14/24 at 21:00; Stop 06/13/24 at 20:59 Pharmacy Profile Note 1 each AD MISC; Start 05/14/24 at 23:30; Stop 05/15/24 at 18:40; Status DC Potassium Chloride 100 ml @ 100 mls/hr AD PRN IV; Start 05/15/24 at 08:30; Stop 06/14/24 at 08:29 Potassium Chloride 20 meq AD PRN PO; Start 05/15/24 at 08:30; Stop 06/14/24 at 08:29 Potassium Chloride 20 meq AD PRN PO Last administered on 05/15/24at 12:45; Start 05/15/24 at 08:30; Stop 06/14/24 at 08:29 Magnesium Sulfate 50 ml @ 0 mls/hr PROTOCOL PRN IV; Start 05/15/24 at 08:30; Stop 06/14/24 at 08:29 Gabapentin 300 mg TID PO Last administered on 05/18/24at 20:05; Start 05/15/24 at 21:00; Stop 06/13/24 at 20:59 Aspirin 81 mg DAILY PO Last administered on 05/16/24at 08:53; Start 05/16/24 at 09:00; Stop 05/16/24 at 13:23; Status DC Metoprolol Tartrate 12.5 mg BID PO Last administered on 05/18/24at 20:05; Start 05/15/24 at 21:00; Stop 06/14/24 at 20:59 Furosemide 40 mg DAILY PO Last administered on 05/18/24at 09:33; Start 05/17/24 at 09:00; Stop 06/16/24 at 08:59 Regadenoson 0.4 mg STK-MED ONCE IVP; Start 05/17/24 at 13:08; Stop 05/17/24 at 13:08; Status DC ASSESSMENT: 1, normal ef , stage II diastolic dysfunction 2. mildly elevated troponin 3. hx of htn, hld, dmii PLAN: From a cardiology standpoint pt echo revealed normal ef with moderate TR, pt does have stage 2 diastolic dysfunction stress test shows no evidence of ischemia or infarction will continue asa and beta faustina pt can f/u with us outpt REYNALDO REINA PAC May 18, 2024 21:59
[2024-05-19] VITALS: BP 138/68; PULSE 61; RESP 18; TEMP 98.9
[2024-05-19 04:25] VITALS: BP 134/64; PULSE 62; RESP 18; TEMP 98.3
[2024-05-19 05:58] LABS: BASOPHILS # (AUTO) 0.04 K/uL (0.00-0.20); BASOPHILS % (AUTO) 0.5 % (0.0-5.0); EOSINOPHILS # (AUTO) 0.38 K/uL (0.00-0.70); HEMATOCRIT 27.7 % (36-48); IMMATURE GRANULOCYTE ABSOLUTE 0.03 K/uL (0-1); LYMPHOCYTES # (AUTO) 0.6 K/uL (1.0-4.8); LYMPHOCYTES % (AUTO) 8.1 % (21.0-51.0); MEAN CORPUSCULAR HEMOGLOBIN 24.6 pg (27.0-33.0); MEAN CORPUSCULAR HGB CONC 29.6 g/dL (32.0-36.0); MEAN CORPUSCULAR VOLUME 83.2 fL (79-99); MONOCYTES # (AUTO) 0.4 K/uL (0.1-1.0); MONOCYTES % (AUTO) 4.6 % (3.0-13.0); NEUTROPHILS # (AUTO) 6.2 K/uL (1.8-7.7); NEUTROPHILS % (AUTO) 81.4 % (40.0-77.0); PLATELET COUNT (AUTO) 200 K/uL (130-400); RED BLOOD CELL COUNT(AUTO) 3.33 MIL/uL (4.00-5.50); WHITE BLOOD COUNT (AUTO) 7.6 K/uL (4.8-10.8)
[2024-05-19 06:19] LABS: CREATININE 1.8 mg/dL (0.5-1.0); MAGNESIUM 1.7 mg/dL (1.80-2.40)
[2024-05-19] MEDS: MAGNESIUM 2GM PREMIX 50ML 50 ML IV PRN (06:41)
[2024-05-19 08:00] VITALS: O2SAT 96
[2024-05-19 08:03] VITALS: BP 152/72; PULSE 61; RESP 18; TEMP 98.4
[2024-05-19 12:46] VITALS: BP 132/62; PULSE 61; RESP 22; TEMP 97.3
--- NOTE | 2024-05-19 14:25 | PN ---
PROGRESS NOTE Date of Service: May 19, 2024 Time of Service: 14:23 SUBJECTIVE: No new concerns. Examined at bedside. Denies fever chills and pain. tolerating po meals and liquids. REVIEW OF SYSTEMS CONSTITUTIONAL: Denies fever, chills, or fatigue. HEAD/FACE: No signs of trauma. EENT: Denies eye pain, blurred vision, double vision, or light sensitivity. RESPIRATORY: Denies shortness of breath, cough, wheezing CARDIOVASCULAR: Denies chest pain, palpitation, syncope GASTROINTESTINAL/ABDOMINAL: Denies abdominal pain, constipation, diarrhea, nausea or vomiting GENITOURINARY: Denies dysuria or hematuria. MUSCULOSKELETAL: Denies joint pain, tenderness, or trauma. INTEGUMENTARY: Denies rash or itchiness NEUROLOGICAL/PSYCH: Denies anxiety, depression, heat or cold intolerance. PHYSICAL EXAM EYES: Anicteric. Pupils equal and reactive. HENT: No oral thrush seen, moist Oral mucosa NECK: Supple, no JVD or thyromegaly. LUNGS: Good air entry. No rales, no rhonchi. CARDIOVASCULAR: S1, S2 regular. No murmur heard. ABDOMEN: Soft, non tender, bowel sounds present, no organomegaly CENTRAL NERVOUS SYSTEM: Awake, alert, oriented x 3. No focal deficits. SKIN: No rashes, no swelling. LYMPHATICS: No peripheral lymphadenopathy MUSCULOSKELETAL: No joint swelling, erythema or tenderness. EXTREMITIES: No cyanosis or clubbing BACK: No deformity, no pressure ulcer. GENITOURINARY: No dysuria or hematuria Vital Signs (last 8hr) Date Time Temp Pulse Resp B/P (MAP) Pulse Ox O2 Delivery O2 Flow Rate FiO2 05/19/24 12:46 97.3 61 22 132/62 92 05/19/24 08:03 98.4 61 18 152/72 96 05/19/24 08:00 96 Room Air* 0 21 LABS: Laboratory: Test 05/19/24 11:21 05/19/24 05:10 Range/Units Whole Blood Glucose 201 H 70-110 MG/DL White Blood Count 7.6 4.8-10.8 K/uL Red Blood Count 3.33 L 4.00-5.50 MIL/uL Hemoglobin 8.2 L 12.0-16.0 g/dL Hematocrit 27.7 L 36-48 % Mean Corpuscular Volume 83.2 79-99 fL Mean Corpuscular Hemoglobin 24.6 L 27.0-33.0 pg Mean Corpuscular Hemoglobin Concent 29.6 L 32.0-36.0 g/dL Red Cell Distribution Width 21.0 H 11.0-15.5 % Platelet Count 200 130-400 K/uL Mean Platelet Volume 10.3 7.5-10.5 fL Immature Granulocyte % (Auto) 0.4 0-1 % Neutrophils (%) (Auto) 81.4 H 40.0-77.0 % Lymphocytes (%) (Auto) 8.1 L 21.0-51.0 % Monocytes (%) (Auto) 4.6 3.0-13.0 % Eosinophils (%) (Auto) 5.0 0.0-8.0 % Basophils (%) (Auto) 0.5 0.0-5.0 % Neutrophils # (Auto) 6.2 1.8-7.7 K/uL Lymphocytes # (Auto) 0.6 L 1.0-4.8 K/uL Monocytes # (Auto) 0.4 0.1-1.0 K/uL Eosinophils # (Auto) 0.38 0.00-0.70 K/uL Basophils # (Auto) 0.04 0.00-0.20 K/uL Absolute Immature Granulocyte (auto 0.03 0-1 K/uL Nucleated Red Blood Cells 0.0 0.0-0.19 % Sodium Level 142 136-145 mmol/L Potassium Level 4.0 3.5-5.1 mmol/L Chloride Level 105 101-111 mmol/L Carbon Dioxide Level 30 21-32 mmol/L Blood Urea Nitrogen 38 H 7-18 mg/dL Creatinine 1.8 H 0.5-1.0 mg/dL Glomerular Filtration Rate Calc 31 >90 mL/min Random Glucose 146 H 70-105 mg/dL Total Calcium 8.0 L 8.5-10.1 mg/dL Magnesium Level 1.70 L 1.80-2.40 mg/dL DIAGNOSTICS / RADIOLOGY: PORTABLE CHEST RADIOGRAPH INDICATION: SHORTNESS A BREATH COMPARISON: 11/09/2023 FINDINGS: Image is somewhat underexposed, but the radiologic examination is still believed to be of reasonable diagnostic quality. Heart size is normal. The pulmonary vascularity and jose appear normal. Linear opacities near the right lung base without consolidation. Right costophrenic angle is blunted. No pneumothorax detected. IMPRESSION: Small right pleural effusion with subjacent passive atelectasis. ASSESSMENT: SIRENA on CKD last known renal function [id number] GFR 38, Cr 1.5 and BUN 28 Diabetes type 2 HTN Anemia PLAN: Monitor renal function, no change in the last 24hours Continue with current POC Dose to renal Clearence Avoid NSAIDs and nephrotoxins Monitor Fluid intake 1.5 L QD Monitor I's and O's Monitor Electrolytes No need for INSTRUMENTATION CHEMIST at this time Renal Diet upon DC, patient will need to f/u o/p for continuation of care and monitoring of renal status MURIEL BROCK May 19, 2024 14:25
--- NOTE | 2024-05-19 15:31 | DS ---
Discharge Summary Hospital Course This is a 63-year-old female patient with past medical history of hypertension, diabetes mellitus, recurrent UTI a morbid obesity who was brought to the emergency room with the above complaint. The patient was found with increasing chest pain and shortness of breath by a sister and was brought to the emergency room. Chest pain is localized to the retrosternal area with no radiation. In the ER, the patient found with troponin of 89. BNP elevated at 845. The patient denies palpitations or orthopnea. The patient was found with low oxygen saturation and was placed on nasal cannula oxygen. EKG shows sinus rhythm with no STEMI. The patient also complained of urinary frequency, but no dysuria or fever. Urinalysis was positive. Final Urine culture results grew Klebsiella pneumoniae and patient was treated with Meropenem. Patient had a stress test which was negative for ischemia or infarction. SNF placement for rehab was offered but patient declined. Patient was able to ambulate 35 ft with physical therapist standby assistance. FINAL DISCHARGE DIAGNOSIS: Possible congestive heart failure. Right pleural effusion. Urinary tract infection with Klebsiella pneumoniae. Diabetes mellitus. Anemia. Abdominal wall Dependent edema. Morbid obesity. Debility. PLAN: Discharge patient to home today. Continue same home medications. Follow up with PCP in 3-5 days. This case was reviewed and discussed with my supervising physician and the above assessment and plan was formulated and agreed upon. ATTESTATION BY PHYSICIAN I have seen and examined the patient. I reviewed the documentation, medical decision making, and treatment plan as noted by the mid-level provider above. I agree with the findings and plan of care. VALENTINE HAND MD, MIRTA L FNP May 19, 2024 15:31
== END 2024-05-19 15:16 | disposition home or self-care (01) | DRG 291 ==
LOC: EDH 10:09 → EDHIP 14:04 → 4BH 20:06
PROVIDERS: ADMIT Internal Medicine Infectious Disease; ATTEND Internal Medicine Infectious Disease
DX: I13.0 Hypertensive heart and chronic kidney disease with heart failure and stage 1 through stage 4 chronic kidney disease, or unspecified chronic kidney disease (principal); I50.33 Acute on chronic diastolic (congestive) heart failure; J91.8 Pleural effusion in other conditions classified elsewhere; N30.01 Acute cystitis with hematuria; N17.9 Acute kidney failure, unspecified; Z68.41 Body mass index [BMI] 40.0-44.9, adult; Z20.822 Contact with and (suspected) exposure to COVID-19; E78.00 Pure hypercholesterolemia, unspecified; D63.1 Anemia in chronic kidney disease; E11.22 Type 2 diabetes mellitus with diabetic chronic kidney disease; N18.30 Chronic kidney disease, stage 3 unspecified; E66.01 Morbid (severe) obesity due to excess calories; B96.1 Klebsiella pneumoniae [K. pneumoniae] as the cause of diseases classified elsewhere; Z90.49 Acquired absence of other specified parts of digestive tract; Z90.710 Acquired absence of both cervix and uterus; Z87.440 Personal history of urinary (tract) infections; Z82.41 Family history of sudden cardiac death; Z82.49 Family history of ischemic heart disease and other diseases of the circulatory system; Z83.3 Family history of diabetes mellitus
CPT/HCPCS: 36415; 71045; 78452; 80048; 81001; 82948; 83036; 83735; 83880; 84484; 85025; 87086; 87186; 87426; 93005; 93017; 93306; 96374; 99285; A9500; G0378; J0360; J0696; J1650; J1815; J1940; J2185; J2785; J3475; J7070